=== PATIENT | female | born 1975 | race Caucasian/White ===

== ENCOUNTER 2016-11-22 18:30 | Inpatient (IN) | payer BC ==
[~2016-11-22] VITALS: Ht 160 cm; Wt 63.3 kg
[2016-11-22] VITALS (9 sets, daily range): BP systolic 121–158; BP diastolic 83–923
--- NOTE | ~2016-11-22 | CON ---
[place], [place] REPORT OF CONSULTATION [id number] #: [id number] ROOM: 519 DOCTOR: OWEN DOMINGUEZ ED.D (RAHEEM) BIRTHDATE: [birth year] DOS: 11/23/2016 HISTORY OF PRESENT ILLNESS: The patient is a 41-year-old female referred following an overdose of drugs. She is presently in the Intensive Care Unit at [facility]. She is and has no children. She does have one brother who also has substance abuse issues. Her family physician is Dr. aCin. Her medical history is pertinent for hypertension, major depression, heroin abuse and cocaine abuse. She has been treated at [facility] and [facility] for substance abuse in the past. She has been following with Dr. Johnson, who treats her with Suboxone. She stated that it became very expensive and she discontinued the Suboxone. She actually can afford the medications and I did discuss that with the [facility] staff along with her hospitalist. She states that she gets depressed because her substance abuse and has been treated on the Behavioral Health Unit here at [facility]. She was prescribed Zyprexa and Remeron by Dr. Guevara, but they caused significant weight gain and she discontinued the medications. I did discuss this with Dr. Guevara and he will be contacted as a consult by Dr. Mena for his psychotropic medications. She states she will probably follow up in my office for outpatient therapy along with following with medication management and Suboxone. DIAGNOSES: 1. Major depressive disorder, recurrent. 2. Heroin abuse. 3. Cocaine abuse. RECOMMENDATIONS: 1. This patient should go to [facility]. 2. The patient should follow up with Dr. Guevara. 3. The patient to follow with Dr. Johnson for Suboxone. 4. The patient is not suicidal and therefore may be treated under the [facility]. Thank you very much for this consult. OWEN DOMINGUEZ ED.D CM:CONSTR:REPORT OF CONSULTATION 1122 11/23/16 1534 interface
--- NOTE | ~2016-11-22 | CON ---
[place], [place] REPORT OF CONSULTATION NAME: DIXIE HORNER UNIT #: [id number] ROOM: 519 DOCTOR: SAIDA GAVIN MD BIRTHDATE: [birth year] DOS: 11/24/2016 PSYCHIATRIC CONSULT CHIEF COMPLAINT: "I am just so depressed. I need something that works without causing weight gain" HISTORY OF PRESENT ILLNESS: This is a 41-year-old white female who was initially admitted due to an overdose of drugs. The patient has a lengthy history of substance abuse and most recently was stabilized on Suboxone; however, due to the cost of the Suboxone, she dropped out of treatment and subsequently relapsed. She also has a lengthy history of depression and most recently was stabilized on a combination of Remeron and Zyprexa while those medications worked extremely well at combating the depression. She reports an excessive amount of weight gain of over 30 pounds since starting the medication. She subsequently stopped the medications due to the significant weight gain. She endorses poor sleep and appetite, energy, anhedonia, hopeless, helpless feelings, crying spells, and inability to cope. She also has mood swings at times that become very problematic. PAST MEDICAL HISTORY: Remarkable for hypertension, heroin abuse, cocaine abuse. MENTAL STATUS: She is alert and oriented to person, place, and time. Mood is depressed with anxious overtones. She was on the verge of tears throughout most of the session. She endorses multiple neurovegetative symptoms. She also notes some issues with mood lability. There are no psychotic symptoms. There are no auditory or visual hallucinations, delusions or paranoia. Short-term, intermediate, and long-term memory are intact. DIAGNOSIS: Bipolar type 2. PLAN: I will start her on Tofranil 75 mg at bedtime. The dose should be increased gradually to a target of at least 150 mg at bedtime. Likewise, I will start her on Vraylar as a mood stabilizer at 1.5 mg at bedtime, its dose should be stabilized somewhere between 3 and 6 mg at bedtime. I have suggested that she follow up for counseling with Dr. Curly Rosas, psychologist and for medication management with [facility] at [facility]. SAIDA GAVIN MD CM:CONSTR:REPORT OF CONSULTATION 11/24/16 0928 interface
[~2016-11-22 18:30] MED LIST: ANAPROX DS550 MG PO; BUPRENORPHINE-N1 TAB SL; CIPRO500 MG PO; CLONAZEPAM1 MG PO; CLONIDINE HCL0.1 MG PO; DIOVAN80 M1 PO; GEODON20 M1 IM; LEVAQUIN750 MG PO; METHSCOPOLAMIN2.5 M1 PO; MIRTAZAPINE15 M2 PO; NALTREXONE HCL50 MG PO; REMERON15 M2 PO; SEPTRA DS 800 M1 TAB PO; VALSARTAN160 MG PO; VICODIN 5/500 505 MG PO; VISTARIL50 MG PO; ZOFRAN2 MG/ML IJ; ZYPREXA2.5 MG PO; ZYPREXA5 M1 PO; Zofran4 MG PO
--- NOTE | 2016-11-22 18:55 | NUR ---
ALL BELONGINGS IN BAG AND AT NURSING STATION. PT CALM AND COOPERATIVE. SPOKE WITH POISON CONTROL, STATES TO PROVIDE SUPPORTIVE CARE FOR PATIENT, ORDER EKG, TYLENOL AND ASA LEVEL.
[2016-11-22 19:05] LABS: BASO # 0.1 10*3/uL (0.0-0.1); BASO % 0.8 % (0.0-1.0); EOS # 0.3 10*3/uL (0.0-0.4); EOS % 3.6 % (1.0-4.0); HEMATOCRIT 42.7 % (37.0-47.0); HEMOGLOBIN 14.4 g/dl (12.0-16.0); LYMPH # 2.4 10*3/uL (1.3-4.4); LYMPH % 30.7 % (27.0-41.0); MEAN CELL VOLUME 91.8 fl (81.0-99.0); MEAN CORPUSCULAR HGB CONC 33.7 g/dl (33.0-37.0); MEAN PLATELET VOLUME 10.1 fl (9.6-12.3); MONO # 0.5 10*3/uL (0.1-1.0); MONO % 6.7 % (3.0-9.0); NEUT # 4.5 10*3/uL (2.3-7.9); NEUT % 57.9 % (47.0-73.0); PLATELET COUNT AUTOMATED 349 10*3/uL (130-400); RED BLOOD COUNT 4.65 10*6/uL (4.10-5.10); RED CELL DISTRI WIDTH 12.6 % (0-14.5); WHITE BLOOD COUNT 7.8 10*3/uL (4.8-10.8)
[2016-11-22 19:06] LABS: BILIRUBIN NEGATIVE (NEGATIVE); BLOOD 3+ (NEGATIVE); CLARITY CLEAR (CLEAR); COLOR YELLOW (YELLOW); GLUCOSE NEGATIVE (NEGATIVE); KETONE 1+ (NEGATIVE); LEUKO ESTERASE TRACE (NEGATIVE); NITRITE NEGATIVE (NEGATIVE); UROBILINOGEN 0.2 E.U./dl (0.2-1.0)
[2016-11-22 19:12] LABS: BACTERIA TRACE
[2016-11-22 19:15] LABS: URINE AMPHETAMINES < 1000 (1000ng/ml); URINE BARBITURATES < 200 (200ng/ml); URINE BENZODIAZEPINES < 200 (200ng/ml); URINE CANNABINOIDS (THC) < 50 (50ng/ml); URINE COCAINE > 300 (300ng/ml); URINE METHADONE < 300 (300ng/ml); URINE OPIATES > 300 (300ng/ml)
[2016-11-22 19:16] LABS: URINE PHENCYCLIDINE < 25 (25ng/ml)
[2016-11-22 19:19] LABS: ALBUMIN 4.2 gm/dl (3.1-4.5); ALKALINE PHOSPHATASE 115 U/L (45-117); BUN 10 mg/dl (7-24); CHLORIDE 113 mmol/L (98-107); CREATININE 0.91 mg/dL (0.55-1.02); POTASSIUM 4.3 mmol/L (3.5-5.1); SGOT/AST 21 IU/L (3-35); SGPT/ALT 19 U/L (12-78); SODIUM 144 mmol/L (136-145); TOTAL PROTEIN 8.1 gm/dL (6.4-8.2)
--- NOTE | 2016-11-22 19:20 | NUR ---
PATIENT STILL TEARFUL STATES SHE IS SAD AND EMBARRASSED. SIGNIFICANT OTHER PRESENT
[2016-11-22 19:22] LABS: ACETAMINOPHEN (TYLENOL) < 2.0 ug/ml (10-30); B-hCG (QUALITATIVE) NEGATIVE (NEGATIVE)
--- NOTE | 2016-11-22 20:45 | NUR ---
POISON CONTROL CALLED FOR UPDATE
--- NOTE | 2016-11-22 23:42 | NUR ---
POISON CONTROL CALLED AGAIN INFORMED THAT SHE IS BEING ADMITTED TO ICU
[2016-11-23 00:30] VITALS: BP 153/77
[2016-11-23 04:00] VITALS: BP 106/62
[2016-11-23 06:08] LABS: BASO # 0.1 10*3/uL (0.0-0.1); BASO % 0.6 % (0.0-1.0); EOS # 0.4 10*3/uL (0.0-0.4); EOS % 5.4 % (1.0-4.0); HEMATOCRIT 40.1 % (37.0-47.0); HEMOGLOBIN 13.3 g/dl (12.0-16.0); LYMPH # 3.4 10*3/uL (1.3-4.4); LYMPH % 41.8 % (27.0-41.0); MEAN CELL VOLUME 93.5 fl (81.0-99.0); MEAN CORPUSCULAR HGB CONC 33.2 g/dl (33.0-37.0); MONO # 0.7 10*3/uL (0.1-1.0); MONO % 8.4 % (3.0-9.0); NEUT # 3.5 10*3/uL (2.3-7.9); NEUT % 43.6 % (47.0-73.0); PLATELET COUNT AUTOMATED 296 10*3/uL (130-400); RED BLOOD COUNT 4.29 10*6/uL (4.10-5.10); RED CELL DISTRI WIDTH 12.6 % (0-14.5); WHITE BLOOD COUNT 8.1 10*3/uL (4.8-10.8)
--- NOTE | 2016-11-23 06:38 | NUR ---
DR. DOMINGUEZ ANSWERING SERVICE NOTIFIED OF CONSULT.
[2016-11-23 06:40] LABS: BUN 13 mg/dl (7-24); CHLORIDE 108 mmol/L (98-107); CHOLESTEROL 210 mg/dL (<200); CREATININE 0.86 mg/dL (0.55-1.02); SODIUM 141 mmol/L (136-145); TRIGLYCERIDES 94 mg/dl (<150); VLDL CHOLESTEROL 19 mg/dL (6-40)
[2016-11-23 06:42] LABS: ACT PARTIAL THROMBO TIME 28.8 SECONDS (20.8-31.5)
[2016-11-23 06:49] LABS: HDL CHOLESTEROL 83 mg/dl (40-60); LDL CHOLESTEROL 108 mg/dL (9-159)
[2016-11-23 07:27] LABS: VITAMIN D, 25-HYDROXY 29.9 ng/mL (30-100)
[2016-11-23 08:00] VITALS: BP 134/78
--- NOTE | 2016-11-23 09:20 | NUR ---
PATIENT C/O STOMACH ACHING AND ANXIETY. MEDICATED WITH BENTYL AND VISTARIL PER PRN ORDERS. WILL CONTINUE TO MONITOR.
[2016-11-23 12:00] VITALS: BP 124/70
--- NOTE | 2016-11-23 13:30 | NUR ---
NOTIFIED OF NEW CONSULT ORDER.
[2016-11-23 16:00] VITALS: BP 130/74
[2016-11-23 20:00] VITALS: BP 115/77
--- NOTE | 2016-11-23 20:00 | NUR ---
PT C/O BACK PAIN. MEDICATED WITH MOTRIN PER PRN ORDER.
--- NOTE | 2016-11-23 22:00 | NUR ---
MOTRIN WAS EFFECTIVE.
[2016-11-24] VITALS: BP 113/83
[2016-11-24 08:00] VITALS: BP 122/90
--- NOTE | 2016-11-24 09:52 | NUR ---
PT SITTING UP IN BED. RESP-EASY AND REGULAR. COMPLAINING OF ANXIETY. MEDICATED WITH VISTARIL PO PER PRN ORDER, SEE EMAR. CALL LIGHT IN REACH. SEE SHIFT ASSESSMENT.
--- NOTE | 2016-11-24 10:00 | NUR ---
Patient resting. Responding to scheduled medications with fewer complaints of pain and anxiety. CALL LIGHT IN REACH.
[2016-11-24 12:00] VITALS: BP 120/77
--- NOTE | 2016-11-24 14:00 | NUR ---
RESTING IN CHAIR. NO C/O AT THIS TIME. CALL LIGHT IN REACH.
[2016-11-24 16:00] VITALS: BP 116/98
--- NOTE | 2016-11-24 16:00 | NUR ---
PT RESTING IN BED. RESP-EASY AND REGULAR. NO C/O AT THIS TIME. CALL LIGHT IN REACH. SEE SHIFT ASSESSMENT.
--- NOTE | 2016-11-24 18:30 | NUR ---
SITTING UP IN RECLINER CHAIR. RESP-EASY AND REGULAR. NO C/O AT THIS TIME. CALL LIGHT IN REACH.
--- NOTE | 2016-11-24 19:14 | NUR ---
PATIENT HAS COMPLAINTS OF RESTLESS LEG AND MUSCLE PAIN. ROBAXIN AND REQUIP GIVEN. PATIENT ALSO ASKED ABOUT THE NEW MEDS FROM DR. GAVIN, AND I EXPLAINED TO HER SHE WOULD BE STARTING TONIGHT. WILL REASSESS.
[2016-11-24 20:00] VITALS: BP 120/88
--- NOTE | 2016-11-24 21:00 | NUR ---
REQUIP AND ROBAXIN EFFECTIVE FOR RESTLESSNESS AND MUSCLE ACHES.
[2016-11-25] VITALS: BP 136/79
--- NOTE | 2016-11-25 05:20 | NUR ---
24 HR chart check completed.
--- NOTE | 2016-11-25 07:50 | NUR ---
PT RESTING IN BED. RESP-EASY AND REGULAR. NO C/O AT THIS TIME. CALL LIGHT IN REACH. SEE SHIFT ASSESSMENT.
[2016-11-25 08:00] VITALS: BP 123/76
--- NOTE | 2016-11-25 09:25 | NUR ---
PT SITTING UP IN CHAIR. TOLERATED ROUTINE MED WITH NO PROBLEM. REQUESTING VISTARIL FOR ANXIETY. MEDICATED WITH VISTARIL PO PER PRN ORDER, SEE EMAR. CALL LIGHT IN REACH.
--- NOTE | 2016-11-25 10:25 | NUR ---
STATES MEDICATION EFFECTIVE. NO C/O AT THIS TIME. CALL LIGHT IN REACH.
[2016-11-25 12:00] VITALS: BP 127/70
--- NOTE | 2016-11-25 14:00 | NUR ---
SITTING UP IN CHAIR. VISITORS AT HER SIDE. RESP-EASY AND REGULAR. NO C/O AT THIS TIME. CALL LIGHT IN REACH.
[2016-11-25] MEDS ORDERED: ZOFRAN 4 MG ED2 TAB PO (14:11)
[2016-11-25] MEDS ORDERED: ROPINIROLE HYD0.5 MG PO (14:11)
[2016-11-25] MEDS ORDERED: VRAYLAR1.5 MG PO (14:11)
[2016-11-25] MEDS ORDERED: ATARAX,VISTARIL50 MG PO (14:11)
[2016-11-25] MEDS ORDERED: IMIPRAMINE HCL50 MG PO (14:11)
[2016-11-25] MEDS ORDERED: Vitamin D PO (14:11)
[2016-11-25 16:00] VITALS: BP 130/84
--- NOTE | 2016-11-25 16:00 | NUR ---
PT SITTING UP IN CHAIR WITH VISITORS AT HER SIDE. TOLERATED ROUTINE SUBUTEX. NO COMPLAINTS AT THIS TIME. CALL LIGHT IN REACH. SEE SHIFT ASSESSMENT.
--- NOTE | 2016-11-25 18:30 | NUR ---
PT RESTING IN BED. NO C/O AT THIS TIMJE. CALL LIGHT IN REACH.
[2016-11-25 20:00] VITALS: BP 130/84
--- NOTE | 2016-11-25 20:29 | NUR ---
PATIENT RESTING IN BED CALL LIGHT IN REACH GAVE SCHEDULED MEDICATIONS AND PRN MEDICATION FOR WITHDRAWAL SYMPTOMS PATIENT IS EXPERIENCING. WILL REASESS FOR EFFECTIVENESS OF MEDICATIONS
--- NOTE | 2016-11-25 22:40 | NUR ---
CHART CHECK COMPLETE
[2016-11-26] VITALS: BP 120/80
--- NOTE | 2016-11-26 03:55 | NUR ---
PATEINT RESTING IN BED CALL LIGHT IN REACH SEE SHIFT ASSESSMENT
[2016-11-26 04:00] VITALS: BP 115/70
[2016-11-26 08:00] VITALS: BP 126/68
--- NOTE | 2016-11-26 11:55 | NUR ---
Discharge instructions reviewed with patient/family. Patient receptive and verbalizes understanding. Follow-up care arranged. Written instructions given to patient/family. LAVINIA EDDY
== END 2016-11-26 12:00 | disposition home or self-care (01) | DRG 918 ==
LOC: ED 18:30 → EDHOLD 23:37 → ICCU 23:37 → 5E 11-23 14:35
PROVIDERS: Internal Medicine; Physician Assistant; ADMIT Emergency Medicine
DX: T50.902A Poisoning by unspecified drugs, medicaments and biological substances, intentional self-harm, initial encounter (principal); E87.8 Other disorders of electrolyte and fluid balance, not elsewhere classified; F11.23 Opioid dependence with withdrawal; F31.81 Bipolar II disorder; R06.82 Tachypnea, not elsewhere classified; F14.10 Cocaine abuse, uncomplicated; I10 Essential (primary) hypertension; F41.9 Anxiety disorder, unspecified; E78.00 Pure hypercholesterolemia, unspecified; K27.9 Peptic ulcer, site unspecified, unspecified as acute or chronic, without hemorrhage or perforation; Z83.3 Family history of diabetes mellitus; Z82.49 Family history of ischemic heart disease and other diseases of the circulatory system; Z88.8 Allergy status to other drugs, medicaments and biological substances

== ENCOUNTER 2017-01-30 16:18 | Inpatient (IN) | payer BC ==
[~2017-01-30] VITALS: Ht 160 cm; Wt 63.7 kg
--- NOTE | ~2017-01-30 | CON ---
[place], [place] REPORT OF CONSULTATION NAME: [facility] [id number] UNIT #: [id number] ROOM: [facility] DOCTOR: OWEN DOMINGUEZ ED.D (RAHEEM) BIRTHDATE: [birth year] DOS: 01/31/2017 HISTORY OF PRESENT ILLNESS: The patient is a 41-year-old female referred by the hospitalist for evaluation following an overdose of drugs. At the present time, this patient is in the intensive care unit at [place] [facility]. She is , but has no children. Her family physician is Dr. Cain and her medical history is pertinent for bipolar 2 disorder, hypertension, hypercholesterolemia, peptic ulcer disease, history of suicide attempts in the past and heroin and cocaine abuse. She does not use any tobacco related products and is a social drinker. The patient was awake, alert and oriented in all 3 spheres. She adamantly denies any suicidal ideation or plan. She does not appear to be having any active hallucinations or delusional thoughts and I have known this patient for many years and she never had any delusional thoughts. Her short and long-term memory appears to be intact. Her insight, judgment and concentration are fair. This patient indicated she overdosed on heroin and cocaine, but does not remember anything after she did snort drugs. She states that she was recently in [facility] and wants to return to the [facility]. I did discuss this with [facility] staff and she will be readmitted to the [facility] and possibly sent for inpatient treatment. She does follow with Dr. Munoz where she receives lithium, doxepin, Ativan and Neurontin. I suggested she did need to see a counselor, SMOOTH Franco. She states she is going to get ____ recommended and will follow up with Dr. Munoz along with [facility]. DIAGNOSES: 1. Heroin abuse. 2. Cocaine abuse. 3. Bipolar 2 disorder. RECOMMENDATIONS: 1. The patient should be readmitted to the [facility]. 2. The patient should follow with Dr. Munoz once she is discharged. Thank you very much for this consult. OWEN DOMINGUEZ ED.D CM:CONSTR:REPORT OF CONSULTATION 1156 01/31/17 1857 interface
--- NOTE | ~2017-01-30 | CON ---
[place], [place] REPORT OF CONSULTATION NAME: DIXIE HORNER UNIT #: [id number] ROOM: 424 DOCTOR: ADRIANA PEDRAZA MDULAM BIRTHDATE: [birth year] DOS: 02/03/2017 ADDENDUM Consultation was completed. The patient was independently seen and examined for today's consultation. Medical records of the patient were reviewed. The history was personally taken from the physical examination performed. Assessment and management for the patient, which was done for this patient was personally completed for today's visit as well. The note which was done by the medical assistant prn for part of the consultation was approved. HISTORY OF PRESENT ILLNESS: The patient was noted as a 41-year-old female who has been admitted to the hospital and admitted under the hospitalist service on 01/30/2017. The patient was found to be barely arousable with significant somnolence. The patient was seen by the EMS. She was brought to the hospital for possibility of drug overdose with the heroin. The patient reported with history of drug abuse in the past as well. She has been noted with use of the heroin and also cocaine. She denies any history of illicit drug use. She has been treated related to drug withdrawal and initially admitted to the medical floor. Later on, converted to the [facility] patient for the management of the illicit drug use and detox infiltration. The patient had a CT scan of the chest that was ordered yesterday by the primary care attending to rule out pulmonary embolism because of the tachycardia noted in this patient. She denies any ongoing symptoms at this time, shortness of breath, coughing, sputum expectoration or any chest pain or hemoptysis. REVIEW OF SYSTEMS: Done by the medical assistant prn. PAST MEDICAL HISTORY: 1. Noted history of use of illicit drugs in the form of heroin snorting as well as cocaine use. 2. History of bipolar disorder. 3. Essential hypertension. 4. Hypercholesterolemia. 5. IgA nephropathy. 6. Peptic ulcer disease. 7. Past history of suicidal attempt. PAST SURGICAL HISTORY: Noted with wisdom teeth extraction. SOCIAL HISTORY: The patient stated that she is , but does not have any history of alcohol use or any illicit drugs. She does not have any children. History of use of cocaine and heroin was noted both done with inhalation and no intravenous use described. There was no history of tobacco use. FAMILY HISTORY: The patient's both parents living, 66 years old for the patient without any known medical illnesses. HOME MEDICATIONS: The patient reported use of doxepin, Neurontin, lithium, lorazepam, scopolamine and Diovan. [place], [place] REPORT OF CONSULTATION NAME: DIXIE HORNER UNIT #: [id number] ROOM: 424 DOCTOR: LALEN PEDRAZA MD BIRTHDATE: [birth year] DRUG ALLERGIES: Reported allergies to BACITRACIN and PENICILLINS. PHYSICAL EXAMINATION: GENERAL: This is a 41-year-old female who has been currently noted to be awake and alert at this time without any acute distress. The patient was sitting comfortably on the chair at this time of the examination. VITAL SIGNS: The patient's height was recorded on admission with height of 5 feet 3 inches, weight of 140 pounds, BMI was not calculated. Vital signs, which has been recorded shows the temperature noted at 100 degrees Fahrenheit on 02/01/2017, otherwise the patient remains afebrile. The respiratory rate range between 18-20, heart rate noted with mild tachycardia with heart rate of 115 beats per minute to 91 this morning. Pulse oxygen saturation on room air was 100% saturation noted normal since admission. HEENT: Shows head was atraumatic. Eyes nonicterus. NECK: Supple. CARDIOVASCULAR: S1, S2 is audible. LUNGS: Noted without any wheezing or crackles. ABDOMEN: Soft, nontender. EXTREMITIES: Shows no edema. SKIN: No edema, clubbing or cyanosis. CENTRAL NERVOUS SYSTEM: Cranial nerves 2-12 intact. MUSCULOSKELETAL: No deformities. SKIN: No lesions or rashes. LABORATORY DATA: Reviewed for this patient's CBC on 01/30/2017, WBC count 16.3 rather was noted, otherwise remaining CBC was normal. Salicylate level noted less than 1.7. CMP: Glucose 212, BUN and creatinine was normal, CO2 of 18. Tylenol level noted less than 2. The urine drug screen was noted only positive for the cocaine. There is no opiates detected. PT/INR on 01/30/2017 was normal. Urine culture, no bacterial growth. CBC that was done this morning remains normal. RADIOLOGY DATA: Personally reviewed for this patient. The chest x-ray on 11/22/2016, was reviewed and noted without any acute pulmonary process. CT of the chest that was done on 02/01/2017 was personally reviewed and it shows area of ground glass opacity which was present in the lung for this auscultation bilaterally with normal lung parenchyma. IMPRESSION: 1. The patient will be currently admitted to the hospital noted with most likely acute lung injury with ground glass opacity and noninfectious pneumonitis with airtrapping secondary to bronchiolitis. The patient with interstitial edema, diffuse alveolar lung damage is a strong possibility, there was no suspicion of any pulmonary infection explaining this current problem, which is viral or bacterial. 2. History of illicit drug use in the form of cocaine and heroin. The patient reported use of the heroin, but there was none detected. On the current urine toxicology, only cocaine was seen. There was no cocaine injury noted to the muscles or cardiac issues. [place], [place] REPORT OF CONSULTATION NAME: DIXIE HORNER UNIT #: [id number] ROOM: 424 DOCTOR: ALLEN PEDRAZA MD BIRTHDATE: [birth year] 3. Mild tachycardia noted secondary to drug withdrawal is currently resolving without any intervention. 4. History of essential hypertension. PLAN OF TREATMENT: No further workup is recommended for this patient. If necessary, the patient can make an appointment in my office to have a repeat CT scan of the chest could be done in another 3 months for reassessment. No immediate other assessment will be needed. The patient understands the risk of use of the illicit drugs and its toxicity. Abstinent for any illicit drugs was recommended strongly. Thank you for allowing me to participate in the care of this patient. ALLEN CASTRO MD CM:CONSTR:REPORT OF CONSULTATION 1137 02/03/17 1337 interface
--- NOTE | ~2017-01-30 | CON ---
[place], [place] REPORT OF CON[facility]ULTATION [id number] #: [id number] ROOM: 424 DOCTOR: DANNA ALEXANDRE DO BIRTHDATE: [birth year] DOS: 02/03/2017 HISTORY OF PRESENT ILLNESS: The patient is a 41-year-old female with no known chronic pulmonary issues, who was admitted to the hospital after a heroin overdose and frequent resuscitation via Narcan. She was in the ICU and after that she was moved to the floor and was treated for heroin withdrawal symptoms and she had completed the [facility], which is a 3-day Subutex protocol program and towards the end of her stay, she had a CTA done secondary to concern for PE as has been tachycardic. The patient herself does not complain of any respiratory difficulties or any shortness of breath. She denies any cough, any fevers, any chills. She denies any hemoptysis and any difficulty or pain with breathing. She is afebrile and currently has no symptoms of an acute respiratory infection. The CT did show some scattered ground glass opacities in both the right and left hemothorax and that was the reason for the consultation. REVIEW OF SYMPTOMS: CONSTITUTIONAL: Denies any fevers or chills. EYES: Denies any pain or redness or discharge. EARS, NOSE AND THROAT: Denies throat pain, hoarseness, difficulty swallowing or postnasal discharge or postnasal drainage. CARDIOVASCULAR: Denies chest pain. Denies any lower extremity edema. Denies any palpitations. GASTROINTESTINAL: Denies any dysphagia, nausea, vomiting, hemoptysis, melena, hematochezia, dysphagia or any weight loss as unexpected. GENITOURINARY: Denies dysuria, suprapubic pain. SKIN: No lesions or rashes. MUSCULOSKELETAL: No acute pain in joints or muscles. No tenderness or edema. CENTRAL NERVOUS SYSTEM: Denies any dizziness, headaches, diplopia or syncopal episodes. Remaining systems were reviewed and were negative. PAST MEDICAL HISTORY: Significant for anxiety, bipolar disorder, depression, essential hypertension, heroin abuse, dyslipidemia, ____ nephropathy, peptic ulcer disease and a previous suicide attempt. PAST SURGICAL HISTORY: Positive for an ablation and positive for wisdom tooth extraction. SOCIAL HISTORY: Positive for heroin and cocaine abuse. Does not smoke, does not drink alcohol regularly. FAMILY HISTORY: Father and mother are both alive and they are both 66 years old and no known medical problems. HOME MEDICATIONS: Include doxepin, gabapentin, lorazepam, valsartan and lithium. DRUG ALLERGIES: PENICILLIN. PHYSICAL EXAMINATION: [place], [place] REPORT OF CONSULTATION NAME: DIXIE HORNER UNIT #: [id number] ROOM: 424 DOCTOR: DANNA ALEXANDRE DO BIRTHDATE: [birth year] GENERAL: This is a 41-year-old female who appears awake, alert, oriented and in no distress. VITAL SIGNS: The patient's height is recorded to be 5 feet 3 inches and weight at 63 kilograms with a BMI of 24.9 on admission, temperature is 98.1, heart rate is 91, respiratory rate is 18, blood pressure is 112/81 and pulse ox is 100% on room air. HEENT: Head is atraumatic. Eyes are not icteric. NECK: Supple. CARDIOVASCULAR: S1, S2 audible. No murmurs. No S3. No S4. LUNGS: Some mild decrease in respiratory effort with some minimal crackles in the lower lung pires. ABDOMEN: Soft, nontender. EXTREMITIES: No edema. No clubbing or cyanosis. CENTRAL NERVOUS SYSTEM: Cranial nerves 2-12 are intact without any focal deficits. MUSCULOSKELETAL: Showed no deformities. SKIN: No lesions. No rashes. No track ayala. LABORATORY DATA: From February 03, white blood count is noted to be 5.6, hemoglobin is 12.0, hematocrit is 35.5 and platelet count is 256. Metabolic panel from January 30 showed sodium of 138, potassium of 3.8, chloride of 108, carbon dioxide of 18, BUN of 13, creatinine 0.89, GFR more than 60, glucose 202, calcium 8.3, bilirubin 0.3, AST and ALT are 17 and 20, alk phos is 92, myoglobin is 30, total protein 7.8 and albumin 4.2. Serum was negative. CTA which was done on February 01 was read by Radiology and the impression was that there are scattered ground glass opacities in both right and lower hemithorax. IMPRESSION: 1. Most likely bronchial ____ with air trapping and the tachycardia is likely due to the heroin abuse and withdrawal. 2. Heroin abuse. 3. Bipolar disorder. 4. Depression. PLAN OF MANAGEMENT: The patient is currently asymptomatic from a respiratory or pulmonology perspective and she is cleared for discharge at the discretion of the primary care team. The patient is recommended to follow up with Dr. Castro within the next 3 months for an outpatient visit. She should also get a repeat CT scan after 3 months to reevaluate the current findings. Please attach this note to Dr. Castro's consult note and see his impression and plan of management for further details. DANNA ALEXANDRE DO [place], [place] REPORT OF CONSULTATION NAME: DIXIE HORNER Jonna UNIT #: [id number] ROOM: [facility] DOCTOR: DANNA ALEXANDRE DO BIRTHDATE: [birth year] ALLEN CASTRO MD CM:CONSTR:REPORT OF CONSULTATION 1037 02/03/17 1233 interface
[~2017-01-30 16:18] MED LIST changes: +ATARAX,VISTARIL50 MG PO; +IMIPRAMINE HCL50 MG PO; +ROPINIROLE HYD0.5 MG PO; +VRAYLAR1.5 MG PO; +Vitamin D PO; +ZOFRAN 4 MG ED2 TAB PO
--- NOTE | 2017-01-30 16:31 | NUR ---
PT WAS ADMINSTERED 0.4 OF NARCAN FOR LETHARGY. PT WAS AVLETO OPEN HER EYES AFTER THE ONE DOSE.
[2017-01-30 16:41] VITALS: BP 131/60
--- NOTE | 2017-01-30 16:41 | NUR ---
PT WAS UNABLE TO STAY AWAKE, ADMINSTERED A SECOND DOSE OF 0.4 NARCAN. PT IS DOWSY BUT AWAKE, POX 100% WILL MONITOR.
[2017-01-30 17:29] LABS: BASO # 0.1 10*3/uL (0.0-0.1); BASO % 0.3 % (0.0-1.0); EOS # 0.1 10*3/uL (0.0-0.4); EOS % 0.7 % (1.0-4.0); HEMATOCRIT 42.7 % (37.0-47.0); HEMOGLOBIN 13.7 g/dl (12.0-16.0); LYMPH # 1.4 10*3/uL (1.3-4.4); LYMPH % 8.3 % (27.0-41.0); MEAN CELL VOLUME 98.6 fl (81.0-99.0); MEAN CORPUSCULAR HGB 31.6 pg (27.0-31.0); MEAN CORPUSCULAR HGB CONC 32.1 g/dl (33.0-37.0); MEAN PLATELET VOLUME 10.6 fl (9.6-12.3); MONO # 0.8 10*3/uL (0.1-1.0); MONO % 4.8 % (3.0-9.0); NEUT # 13.9 10*3/uL (2.3-7.9); NEUT % 85.4 % (47.0-73.0); PLATELET COUNT AUTOMATED 254 10*3/uL (130-400); RED BLOOD COUNT 4.33 10*6/uL (4.10-5.10); WHITE BLOOD COUNT 16.3 10*3/uL (4.8-10.8)
[2017-01-30 17:45] LABS: ALBUMIN 4.2 gm/dl (3.1-4.5); ALKALINE PHOSPHATASE 92 U/L (45-117); BUN 13 mg/dl (7-24); CHLORIDE 108 mmol/L (98-107); CREATININE 0.89 mg/dL (0.55-1.02); POTASSIUM 3.7 mmol/L (3.5-5.1); SGOT/AST 17 IU/L (3-35); SGPT/ALT 20 U/L (12-78); SODIUM 138 mmol/L (136-145); TOTAL PROTEIN 7.8 gm/dL (6.4-8.2)
[2017-01-30 17:47] LABS: B-hCG (QUALITATIVE) NEGATIVE (NEGATIVE)
[2017-01-30 17:49] LABS: ACETAMINOPHEN (TYLENOL) < 2.0 ug/ml (10-30); ETHYL ALCOHOL < 3.0 mg/dl (<3)
--- NOTE | 2017-01-30 18:23 | NUR ---
PT AMBULATORY TO BATHROOM TO PROVIDE URINE SPECIMEN.
[2017-01-30 18:29] VITALS: BP 148/88
--- NOTE | 2017-01-30 18:35 | NUR ---
PT AND MOTHER REQUESTING [facility] IF POSSIBLE.
[2017-01-30 18:37] LABS: BILIRUBIN NEGATIVE (NEGATIVE); BLOOD 3+ (NEGATIVE); CLARITY CLEAR (CLEAR); COLOR YELLOW (YELLOW); GLUCOSE 1+ (NEGATIVE); KETONE NEGATIVE (NEGATIVE); LEUKO ESTERASE NEGATIVE (NEGATIVE); NITRITE NEGATIVE (NEGATIVE); SPECIFIC GRAVITY 1.025 (1.005-1.030); UROBILINOGEN 0.2 E.U./dl (0.2-1.0)
[2017-01-30 18:44] LABS: BACTERIA TRACE; RBC 16-20 rbc/hpf (0-2)
[2017-01-30 18:45] LABS: URINE AMPHETAMINES < 1000 (1000ng/ml); URINE BARBITURATES < 200 (200ng/ml); URINE BENZODIAZEPINES < 200 (200ng/ml); URINE CANNABINOIDS (THC) < 50 (50ng/ml); URINE COCAINE > 300 (300ng/ml); URINE METHADONE < 300 (300ng/ml); URINE OPIATES < 300 (300ng/ml)
[2017-01-30 18:46] LABS: URINE PHENCYCLIDINE < 25 (25ng/ml)
--- NOTE | 2017-01-30 18:59 | NUR ---
MOTHER REMAINS AT BEDSIDE.
[2017-01-30 19:03] VITALS: BP 128/86
[2017-01-30 19:24] VITALS: BP 145/94
--- NOTE | 2017-01-30 19:27 | NUR ---
SPOKE WITH NURSING RESOLUTION ANALYST REGARDING BED PLACEMENT IN BHU. TWO COMBATIVE PATIENTS ARE CURRENTLY IN BHU SO U CANNOT TAKE PT UNTIL MORNING.
--- NOTE | 2017-01-30 20:08 | NUR ---
REPORT GIVEN TO ARPIT MACDONALD
[2017-01-30 20:20] VITALS: BP 148/97
--- NOTE | 2017-01-30 20:20 | NUR ---
A 41, admitted to ICCU, under the services of PABLITO Murillo DO with a diagnosis of HEROIN ABUSE, TACHYCARDIA. Chief complaint is POSSIBLE HEROIN OVERDOSE. Patient arrived via stretcher from ER. Monitor applied. Initial assessment completed. Vital signs taken and recorded. PABLITO MURILLO DO notified of admission to the unit. Orders received. See assessment for past medical history, medications and allergies. Patient and/or family oriented to unit. [facility] ICCU visitation policy reviewed. Clothing/patient valuable form completed. DANIELLE MONTANA
[2017-01-30] MEDS ORDERED: ATIVAN0.5 MG PO (20:24)
[2017-01-30] MEDS ORDERED: LITHIUM CARBON300 MG PO (20:24)
[2017-01-30] MEDS ORDERED: METHSCOPOLAMIN2.5 M1 PO (20:26)
[2017-01-30] MEDS ORDERED: NEURONTIN600 MG PO (20:27)
[2017-01-30] MEDS ORDERED: DOXEPIN25 MG PO (20:28)
[2017-01-31] VITALS: BP 123/78
[2017-01-31 04:00] VITALS: BP 105/59
--- NOTE | 2017-01-31 05:00 | NUR ---
PT STATES TRAZADONE INEFFECTIVE FOR INSOMNIA. DANIELLE MONTANA RN
--- NOTE | 2017-01-31 06:55 | NUR ---
DR. DOMINGUEZ'S ANSWERING SERVICE NOTIFIED OF CONSULT. CONSULT NOT COMPLETE, FOLLOW UP INDICATED AND ONCOMING SHIFT AWARE. DANIELLE MONTANA RN
[2017-01-31 08:00] VITALS: BP 118/74
[2017-01-31 12:00] VITALS: BP 120/60
--- NOTE | 2017-01-31 12:42 | NUR ---
[facility] and co-operative. Declined breakfast. Lunch ordered.
[2017-01-31 15:44] VITALS: BP 124/68
[2017-01-31 20:00] VITALS: BP 137/75
--- NOTE | 2017-01-31 21:37 | NUR ---
2130 ROUTINE ATIVAN AND SUBTUTEX GIVEN PER ORDER.
[2017-02-01] VITALS: BP 109/57
--- NOTE | 2017-02-01 00:10 | NUR ---
RESTING IN BED WITH EYES CLOSED. APPEARS TO BE SLEEPING. HOB ELEVATED. CALL LIGHT IN REACH. IV FLUIDS CONT. NO DISTRESS NOTED.
--- NOTE | 2017-02-01 04:06 | NUR ---
REMAINS SLEEPING WITHOUT DISTRESS.
--- NOTE | 2017-02-01 06:18 | NUR ---
SLEPT WELL THIS SHIFT. IV FLUIDS CONT. NO DISTRESS NOTED. REMAINS WITHOUT C/O'S. CONDITION GUARDED.
[2017-02-01 08:00] VITALS: BP 118/69
[2017-02-01 08:41] LABS: BASO # 0.1 10*3/uL (0.0-0.1); BASO % 0.7 % (0.0-1.0); EOS # 0.6 10*3/uL (0.0-0.4); EOS % 6.2 % (1.0-4.0); HEMATOCRIT 32.9 % (37.0-47.0); LYMPH # 1.1 10*3/uL (1.3-4.4); LYMPH % 11.9 % (27.0-41.0); MEAN CELL VOLUME 95.9 fl (81.0-99.0); MEAN CORPUSCULAR HGB 32.1 pg (27.0-31.0); MEAN CORPUSCULAR HGB CONC 33.4 g/dl (33.0-37.0); MEAN PLATELET VOLUME 10.3 fl (9.6-12.3); MONO # 0.7 10*3/uL (0.1-1.0); MONO % 7.5 % (3.0-9.0); NEUT # 6.5 10*3/uL (2.3-7.9); NEUT % 73.4 % (47.0-73.0); PLATELET COUNT AUTOMATED 200 10*3/uL (130-400); RED BLOOD COUNT 3.43 10*6/uL (4.10-5.10); RED CELL DISTRI WIDTH 12.2 % (0-14.5); WHITE BLOOD COUNT 8.9 10*3/uL (4.8-10.8)
--- NOTE | 2017-02-01 10:35 | NUR ---
PATIENT TRANSFERED TO 424 NURSE TO NURSE REPORT GIVEN.
--- NOTE | 2017-02-01 13:56 | NUR ---
Nutritional Support Services Note: Pt [facility]. No nutrition intervention needed at this time. Appetite is improving. Will follow as needed. Beth Keller
--- NOTE | 2017-02-01 14:40 | NUR ---
PT DOWN FOR CTA AT THIS TIME.
--- NOTE | 2017-02-01 15:06 | NUR ---
PT BACK FROM CT AT THIS TIME.
--- NOTE | 2017-02-01 15:29 | NUR ---
D/C PLANNING: DRAWER WAXER SPOKE WITH PATIENT ABOUT DIFFERENT OPTIONS FOR AFTERCARE PLAN. PATIENT HAS REQUESTED SOME BROCHURES ON SOME RESIDENTIAL TREATMENT CENTERS THAT WOULD FIT HER NEEDS. PATIENT REQUESTED REST. JOSE ZURITA B.A. DRAWER WAXER
--- NOTE | 2017-02-01 15:46 | NUR ---
SPOKE WITH DR PARKER REGARDING PT'S DIET ORDER STATES HE WILL RESUME HER REGULAR DIET.
[2017-02-01 16:00] VITALS: BP 118/70
--- NOTE | 2017-02-01 16:20 | NUR ---
Patient resting. Responding to scheduled medications with fewer complaints of anxiety. Call light within reach.
--- NOTE | 2017-02-01 19:48 | NUR ---
PT. RESTING IN BED COMFORTABLY AT THIS TIME WITH NO COMPLAINTS OR DISTRESS, VISITOR IS AT BEDSIDE. PT. RESPERS ARE EASY AND REGULAR ON RA, HOB IS ELEVATED, CALL LIGHT IS WITHIN REACH, BED LOW AND WHEELS LOCKED. SEE SHIFT ASSESSMENT.
--- NOTE | 2017-02-01 20:11 | NUR ---
TYLENOL ADMINISTERED TO PT. FOR C/O HEADACHE AND TEMPERATURE OF 100.1, WILL MONITOR EFFECT.
--- NOTE | 2017-02-01 20:44 | NUR ---
PT. HAS NO C/O OF HEADACHE AND TEMPERATURE IS DOWN TO 99.5. WILL CONTINUE TO MONITOR.
[2017-02-02] VITALS: BP 104/66
--- NOTE | 2017-02-02 02:53 | NUR ---
24 HR chart check completed.
[2017-02-02 06:57] LABS: CREATININE 0.66 mg/dL (0.55-1.02)
[2017-02-02 08:00] VITALS: BP 127/85
--- NOTE | 2017-02-02 08:50 | NUR ---
IV FLUIDS DISCONTINUED AT THIS TIME. EXPLAINED TO PT RATIONALE WHY HER IV SITE HAS TO REMAIN IN PLACE AT THIS TIME. REMOVED WEALTH MANAGEMENT ADVISOR PER ORDER FOR PT TO SHOWER.
--- NOTE | 2017-02-02 10:00 | NUR ---
PT PLACED BACK ON WET MILLING WHEEL OPERATOR. NO DISTRESS NOTED.
[2017-02-02 12:00] VITALS: BP 132/84
--- NOTE | 2017-02-02 12:55 | NUR ---
DR CASTRO NOTIFIED OF NEW CONSULT.
[2017-02-02 16:00] VITALS: BP 122/87
[2017-02-02 20:00] VITALS: BP 124/79
[2017-02-03] VITALS: BP 120/64
[2017-02-03 06:18] LABS: BASO % 0.5 % (0.0-1.0); EOS # 0.5 10*3/uL (0.0-0.4); EOS % 9.1 % (1.0-4.0); HEMATOCRIT 35.5 % (37.0-47.0); LYMPH # 1.4 10*3/uL (1.3-4.4); MEAN CELL VOLUME 95.4 fl (81.0-99.0); MEAN CORPUSCULAR HGB 32.3 pg (27.0-31.0); MEAN CORPUSCULAR HGB CONC 33.8 g/dl (33.0-37.0); MONO # 0.6 10*3/uL (0.1-1.0); MONO % 11.4 % (3.0-9.0); NEUT % 53.6 % (47.0-73.0); PLATELET COUNT AUTOMATED 258 10*3/uL (130-400); RED BLOOD COUNT 3.72 10*6/uL (4.10-5.10); RED CELL DISTRI WIDTH 11.9 % (0-14.5); WHITE BLOOD COUNT 5.6 10*3/uL (4.8-10.8)
[2017-02-03 08:00] VITALS: BP 112/81
--- NOTE | 2017-02-03 09:02 | NUR ---
DR CASTRO IN TO SEE PT.
--- NOTE | 2017-02-03 10:57 | NUR ---
PT DISCHARGED AT THIS TIME WITH TO HOME.
--- NOTE | 2017-02-03 10:57 | NUR ---
Discharge instructions reviewed with patient/family. Patient receptive and verbalizes understanding. Follow-up care arranged. Written instructions given to patient/family. ELIANA IVY
== END 2017-02-03 10:57 | disposition home or self-care (01) | DRG 917 ==
LOC: ED 16:18 → EDHOLD 19:11 → ICCU 19:11 → 4E 19:50 → ICCU 20:04 → 4E 02-01 10:26
PROVIDERS: Internal Medicine; Physician Assistant; Student in an Organized Health Care Education/Training Program; ADMIT Internal Medicine
DX: T50.991A Poisoning by other drugs, medicaments and biological substances, accidental (unintentional), initial encounter (principal); G93.41 Metabolic encephalopathy; R65.10 Systemic inflammatory response syndrome (SIRS) of non-infectious origin without acute organ dysfunction; F31.81 Bipolar II disorder; N02.8 Recurrent and persistent hematuria with other morphologic changes; E78.00 Pure hypercholesterolemia, unspecified; F11.10 Opioid abuse, uncomplicated; F41.9 Anxiety disorder, unspecified; F14.10 Cocaine abuse, uncomplicated; R91.8 Other nonspecific abnormal finding of lung field; I10 Essential (primary) hypertension; R73.9 Hyperglycemia, unspecified; Y92.89 Other specified places as the place of occurrence of the external cause; Z87.11 Personal history of peptic ulcer disease; Z79.899 Other long term (current) drug therapy; Z88.0 Allergy status to penicillin; Z82.49 Family history of ischemic heart disease and other diseases of the circulatory system; Z88.1 Allergy status to other antibiotic agents

== ENCOUNTER 2017-04-10 15:13 | Inpatient (IN) | payer BC ==
[~2017-04-10] VITALS: Ht 162.5 cm; Wt 68.3 kg
--- NOTE | ~2017-04-10 | EKG ---
[place], [place] ELECTROCARDIOGRAM REPORT NAME: DIXIE HORNER UNIT #: [id number] ROOM: [facility] DOCTOR: JUICE MENDOZA MD BIRTHDATE: [birth year] DOS: 04/11/2017 ELECTROCARDIOGRAM REPORT RESULTS: Normal sinus rhythm, low voltage precordial leads, abnormal ECG. Juice Mendoza MD CM:EKGRPT:ELECTROCARDIOGRAM REPORT [id number] JUICE MENDOZA MD
--- NOTE | ~2017-04-10 | CON ---
[place], [place] REPORT OF CONSULTATION NAME: DIXIE HORNER UNIT #: [id number] ROOM: [facility] DOCTOR: ALLEN PEDRAZA MD BIRTHDATE: [birth year] DOS: 04/11/2017 REASON FOR CONSULTATION: Assessment of the patient with cough with a recent admission for drug overdose as well. HISTORY OF PRESENT ILLNESS: The patient found to be unresponsive as the patient took the drug overdose with the use of crack and heroin. She was found unresponsive and was not breathing when the EMS arrived. She was given 4 mg of IV Narcan. The patient became responsive. The patient does not remember about the events except stating that she has been snorting heroin and crack this afternoon. The patient denies any IV heroin use. Denies symptoms of chest pain. She does have symptoms of cough, which was described as nonproductive. Denies symptoms of hemoptysis. The patient denies any symptoms of active wheezing at the present time. REVIEW OF SYSTEMS: CONSTITUTIONAL SYSTEM: Fatigue and tiredness reported. Denies symptoms of fever or chills. EYES: Denies any burning, redness, or tenderness. EARS, NOSE, AND THROAT: Denies sore throat, hoarseness, or otalgia, postnasal drainage or epistaxis. CARDIOVASCULAR SYSTEM: Denies any angina pain, edema, or pain of lower extremities. GASTROINTESTINAL SYSTEM: Denies dysphagia, nausea, vomiting, diarrhea, aspiration, abnormal weight loss, hematochezia, hematemesis or melena. MUSCULOSKELETAL: No acute joint pain, redness, or tenderness. SKIN: No lesions or rashes. CENTRAL NERVOUS SYSTEM: No dizziness, headache, diplopia, syncopal episodes, seizures at home. Remaining systems were reviewed for this patient. They were noted all negative. PAST MEDICAL HISTORY: 1. Noted for previous admission in this hospital with acute drug overdose requiring short term intubation, mechanical ventilation and discharged home in February 2017. 2. Pulmonary nodule noted in the right lung pleural base requiring further assessment. The patient was seen in the office. 3. The patient with chronic insomnia. I suspect obstructive sleep apnea disorder requiring further assessment. 4. History of IgA nephropathy. SOCIAL HISTORY: The patient stated that she is , does not have any children. Denies any tobacco use, has been noted history of heroin use as well as the crack use, uses snorting without any IV use. PAST SURGICAL HISTORY: Essentially noted. Biopsy of the kidney several years ago. FAMILY HISTORY: Mother 66 years old, living. Father was noted age of 66 years [place], [place] REPORT OF CONSULTATION NAME: DIXIE HORNER UNIT #: [id number] ROOM: [facility] DOCTOR: MATTHEW BLACK MD,ALLEN BIRTHDATE: [birth year] old with a history of essential hypertension. HOME MEDICATIONS: Listed for the patient as use of Valium, doxepin, gabapentin, Lithobid, Levaquin, and valsartan. DRUG ALLERGY HISTORY: Reported as history of allergy to: 1. NEOSPORIN 2. PENICILLIN. PHYSICAL EXAMINATION: GENERAL: This is a 41-year-old female who has been currently sitting on the chair in the Intensive Care Unit without any acute distress, noted fully awake, alert, oriented. Height of 5 feet 4 inches, weight of 50 pounds, BMI 25.8. VITAL SIGNS: Normal temperature, respiratory rate 18-16, heart rate 100-82, blood pressure of 88/58-124/80. Pulse oxygen saturation on room air was 100% saturation. HEENT: Head was atraumatic. Eyes nonicterus. NECK: Supple. CARDIOVASCULAR: S1, S2 is audible. LUNGS: Noted without any crackles, rhonchi, or wheezing at the present time. Breaths are noted clear in the lungs bilaterally. ABDOMEN: Noted flat, soft, nontender, mild obesity. EXTREMITIES: Noted without any edema, clubbing, or cyanosis. CENTRAL NERVOUS SYSTEM: Noted cranial nerves 2-12 intact. No focal deficit. MUSCULOSKELETAL: Does not show any acute deformities. SKIN: Showed no lesions or rashes. LABORATORY DATA: Urine drug screen noted positive for cocaine and benzodiazepines. CBC of 04/10/2017; WBC count 16.7, hemoglobin, hematocrit and platelet count was normal. Salicylate level noted less than 1.7 yesterday. CMP yesterday on admission; BUN 17, creatinine 1.30. The remaining LFTs normal except albumin mildly decreased 2.2. Lactic acid yesterday was 1.2. Admission troponin noted normal on admission, 3 sets. CBC of 04/11/2017; normal WBC count, hemoglobin 11.1, hematocrit 34.1, platelet count normal. Remaining CBC normal, differential normal. Urine culture, no bacterial growth. Chest x-ray, 1 view, does not show any acute pulmonary abnormalities. CT scan of the chest that was done on 04/10/2017 shows patchy area of chronic obesity in the lower lung pires was noted. There was no discrete pulmonary nodules visible. IMPRESSION: 1. The patient who has been currently admitted to the hospital noted with current findings on CT scan, most likely consistent with area of atelectasis and hypoventilation because of unresponsiveness and having secretions with hypoventilation. Other differential diagnosis could be noted as cocaine-induced pulmonary injury to the lung, but the findings was not noted classic for that. 2. Past history of pulmonary nodule which was not visible at this time on the current CT scan of the chest since February 2018. 3. History of recurrent hospitalization with drug overdose with the use of crack and cocaine and use of heroin possibly as well. 4. History of anxiety disorder and depression. [place], [place] REPORT OF CONSULTATION NAME: DIXIE HORNER UNIT #: [id number] ROOM: [facility] DOCTOR: MATTHEW BLACK MD,ALLEN BIRTHDATE: [birth year] 5. History of IgA nephropathy. PLAN OF TREATMENT: At this time, the patient is to be treated symptomatically and may not require any antibiotic administration. When the patient is noted medically stable, could be discharged at home settings. Outpatient followup previously noted in the office will be kept. I have planned for ordering a CT scan of the chest as an outpatient, which will be canceled since the CT scan chest was already obtained patient during this admission. She has been also assessed for insomnia and will be requiring a diagnostic sleep study as well, which is noted at this time being scheduled in the sleep laboratory. ALLEN CASTRO MD CM:CONSTR:REPORT OF CONSULTATION 1614 04/12/17 0311 interface
--- NOTE | ~2017-04-10 | CON ---
[place], [place] REPORT OF CONSULTATION NAME: [facility]ORNER [id number] UNIT #: [id number] ROOM: [facility] DOCTOR: OWEN DOMINGUEZ ED.D (RAHEEM) BIRTHDATE: [birth year] DOS: 04/11/2017 The patient is a 41-year-old female referred by the hospitalist for evaluation following an overdose of heroin and cocaine. She received Narcan when she was found unconscious. At the present time, this patient is in the intensive care unit at [facility]. The patient is , with no children. Her family physician is Dr. Burke Cain and her medical history is pertinent for bipolar 2 disorder, hypertension, hypercholesterolemia, peptic ulcer disease, history of suicide attempts in the past, heroin and cocaine abuse. She states she is a social drinker, but does not use any tobacco related products. This patient was awake, alert and oriented in all 3 spheres. I have known this patient for many years and she has no history of hallucinations or delusional thoughts. Her insight, judgment and concentration are fair. This patient indicated she again overdosed on heroin and cocaine, and did receive Narcan prior to coming to the hospital. She states that she wants to follow up with Dr. Johnson for outpatient Suboxone treatment. She is also going to go back to the counseling center in [place] because she can receive drug counseling at the counseling center. She usually is noncompliant, although she did follow up with Dr. Johnson for quite some time, but then was concerned about the financial issues of paying for Suboxone. Her does have a good job and she states she has the financial resources, but does not like to spend money on Suboxone. I indicated she needed to do something to break the cycle of her addiction. DIAGNOSES: 1. Heroin abuse. 2. Cocaine abuse. 3. Bipolar 2 disorder. RECOMMENDATIONS: 1. Consider the [facility], although the patient seems to want to go outpatient. 2. The patient may be discharged when medically stable since she is not suicidal. Thank you very much for this consult. OWEN DOMINGUEZ ED.D CM:CONSTR:REPORT OF CONSULTATION 1058 04/11/17 1150 interface
[~2017-04-10 15:13] MED LIST changes: +ATIVAN0.5 MG PO; +DOXEPIN25 MG PO; +LITHIUM CARBON300 MG PO; +NEURONTIN600 MG PO
[2017-04-10 15:15] VITALS: BP 130/78
[2017-04-10] MEDS ORDERED: VALIUM2 MG PO (15:32)
[2017-04-10 16:22] LABS: BILIRUBIN NEGATIVE (NEGATIVE); BLOOD NEGATIVE (NEGATIVE); CLARITY SL CLOUDY (CLEAR); COLOR YELLOW (YELLOW); GLUCOSE 2+ (NEGATIVE); KETONE NEGATIVE (NEGATIVE); LEUKO ESTERASE TRACE (NEGATIVE); NITRITE NEGATIVE (NEGATIVE); UROBILINOGEN 0.2 E.U./dl (0.2-1.0)
[2017-04-10 16:26] LABS: BASO # 0.1 10*3/uL (0.0-0.1); BASO % 0.3 % (0.0-1.0); EOS % 0.1 % (1.0-4.0); HEMOGLOBIN 12.7 g/dl (12.0-16.0); LYMPH % 6.2 % (27.0-41.0); MEAN CORPUSCULAR HGB 31.6 pg (27.0-31.0); MEAN CORPUSCULAR HGB CONC 32.6 g/dl (33.0-37.0); MEAN PLATELET VOLUME 9.7 fl (9.6-12.3); MONO % 5.9 % (3.0-9.0); NEUT # 14.5 10*3/uL (2.3-7.9); PLATELET COUNT AUTOMATED 326 10*3/uL (130-400); RED BLOOD COUNT 4.02 10*6/uL (4.10-5.10); RED CELL DISTRI WIDTH 12.3 % (0-14.5); WHITE BLOOD COUNT 16.7 10*3/uL (4.8-10.8)
[2017-04-10 16:30] LABS: URINE AMPHETAMINES < 1000 (1000ng/ml); URINE BARBITURATES < 200 (200ng/ml); URINE BENZODIAZEPINES > 200 (200ng/ml); URINE CANNABINOIDS (THC) < 50 (50ng/ml); URINE COCAINE > 300 (300ng/ml); URINE METHADONE < 300 (300ng/ml); URINE OPIATES < 300 (300ng/ml)
[2017-04-10 16:32] LABS: URINE PHENCYCLIDINE < 25 (25ng/ml)
[2017-04-10 16:42] LABS: BACTERIA TRACE
[2017-04-10 17:21] LABS: ALKALINE PHOSPHATASE 90 U/L (45-117); BUN 17 mg/dl (7-24); CHLORIDE 107 mmol/L (98-107); POTASSIUM 4.4 mmol/L (3.5-5.1); SGOT/AST 19 IU/L (3-35); SGPT/ALT 21 U/L (12-78); SODIUM 139 mmol/L (136-145); TOTAL PROTEIN 7.6 gm/dL (6.4-8.2)
[2017-04-10 17:22] VITALS: BP 131/82
[2017-04-10 17:22] LABS: ACETAMINOPHEN (TYLENOL) < 2.0 ug/ml (10-30); ETHYL ALCOHOL < 3.0 mg/dl (<3); TROPONIN I < 0.015 ng/ml (<0.045)
[2017-04-10 18:30] VITALS: BP 128/72
[2017-04-10 19:15] VITALS: BP 116/73
[2017-04-10 20:30] VITALS: BP 110/68
[2017-04-10 21:45] VITALS: BP 88/58
[2017-04-10] MEDS ORDERED: LITHOBID300 M1 PO (22:18)
[2017-04-11] VITALS: BP 100/62
[2017-04-11 04:00] VITALS: BP 108/60
[2017-04-11 05:29] LABS: BUN 10 mg/dl (7-24); CHLORIDE 114 mmol/L (98-107); CHOLESTEROL 158 mg/dL (<200); CREATININE 0.92 mg/dL (0.55-1.02); PHOSPHOROUS 2.5 mg/dL (2.5-4.9); POTASSIUM 3.9 mmol/L (3.5-5.1); SGOT/AST 12 IU/L (3-35); SGPT/ALT 16 U/L (12-78); SODIUM 145 mmol/L (136-145); TOTAL PROTEIN 5.9 gm/dL (6.4-8.2); TRIGLYCERIDES 128 mg/dl (<150); VLDL CHOLESTEROL 26 mg/dL (6-40)
[2017-04-11 05:38] LABS: ALKALINE PHOSPHATASE 70 U/L (45-117)
[2017-04-11 05:40] LABS: HDL CHOLESTEROL 72 mg/dl (40-60); LDL CHOLESTEROL 60 mg/dL (9-159)
[2017-04-11 06:19] LABS: BASO % 0.4 % (0.0-1.0); EOS # 0.4 10*3/uL (0.0-0.4); EOS % 4.5 % (1.0-4.0); HEMATOCRIT 34.1 % (37.0-47.0); HEMOGLOBIN 11.1 g/dl (12.0-16.0); LYMPH # 2.5 10*3/uL (1.3-4.4); LYMPH % 27.5 % (27.0-41.0); MEAN CELL VOLUME 97.2 fl (81.0-99.0); MEAN CORPUSCULAR HGB 31.6 pg (27.0-31.0); MEAN CORPUSCULAR HGB CONC 32.6 g/dl (33.0-37.0); MEAN PLATELET VOLUME 10.9 fl (9.6-12.3); MONO # 0.6 10*3/uL (0.1-1.0); MONO % 6.6 % (3.0-9.0); NEUT # 5.5 10*3/uL (2.3-7.9); NEUT % 60.2 % (47.0-73.0); PLATELET COUNT AUTOMATED 296 10*3/uL (130-400); RED BLOOD COUNT 3.51 10*6/uL (4.10-5.10); RED CELL DISTRI WIDTH 12.7 % (0-14.5); WHITE BLOOD COUNT 9.2 10*3/uL (4.8-10.8)
[2017-04-11 06:53] LABS: VITAMIN D, 25-HYDROXY 19.5 ng/mL (30-100)
[2017-04-11 08:00] VITALS: BP 124/80
[2017-04-11] MEDS ORDERED: VITAMIN D5000 UNI1 PO (13:52)
[2017-04-11] MEDS ORDERED: LEVOFLOXACIN500 MG PO (13:52)
== END 2017-04-11 14:36 | disposition home or self-care (01) | DRG 871 ==
LOC: ED 15:13 → ICCU 19:50 → EDHOLD 19:50 → 4E 20:28 → ICCU 21:37
PROVIDERS: Hospitalist; Physician Assistant
DX: A41.9 Sepsis, unspecified organism (principal); N17.0 Acute kidney failure with tubular necrosis; J18.9 Pneumonia, unspecified organism; E87.8 Other disorders of electrolyte and fluid balance, not elsewhere classified; E44.0 Moderate protein-calorie malnutrition; F31.81 Bipolar II disorder; F14.10 Cocaine abuse, uncomplicated; I10 Essential (primary) hypertension; F41.9 Anxiety disorder, unspecified; E78.00 Pure hypercholesterolemia, unspecified; D64.9 Anemia, unspecified; F51.04 Psychophysiologic insomnia; N02.8 Recurrent and persistent hematuria with other morphologic changes; T40.1X1A Poisoning by heroin, accidental (unintentional), initial encounter; R91.8 Other nonspecific abnormal finding of lung field; K27.9 Peptic ulcer, site unspecified, unspecified as acute or chronic, without hemorrhage or perforation; F13.10 Sedative, hypnotic or anxiolytic abuse, uncomplicated; Z68.26 Body mass index [BMI] 26.0-26.9, adult; Y92.89 Other specified places as the place of occurrence of the external cause; Z88.0 Allergy status to penicillin; Z88.1 Allergy status to other antibiotic agents; Z88.8 Allergy status to other drugs, medicaments and biological substances; Z79.899 Other long term (current) drug therapy

== ENCOUNTER → 2017-04-17 | Outpatient (CLI) | payer BC ==
[~2017-04-17] MED LIST changes: +LEVOFLOXACIN500 MG PO; +LITHOBID300 M1 PO; +VALIUM2 MG PO; +VITAMIN D5000 UNI1 PO
[2017-04-17 14:22] LABS: BASO # 0.1 10*3/uL (0.0-0.1); BASO % 0.7 % (0.0-1.0); EOS # 0.9 10*3/uL (0.0-0.4); EOS % 7.6 % (1.0-4.0); HEMATOCRIT 41.1 % (37.0-47.0); HEMOGLOBIN 13.5 g/dl (12.0-16.0); LYMPH # 2.6 10*3/uL (1.3-4.4); LYMPH % 21.8 % (27.0-41.0); MEAN CELL VOLUME 97.6 fl (81.0-99.0); MEAN CORPUSCULAR HGB 32.1 pg (27.0-31.0); MEAN CORPUSCULAR HGB CONC 32.8 g/dl (33.0-37.0); MEAN PLATELET VOLUME 10.2 fl (9.6-12.3); MONO # 0.9 10*3/uL (0.1-1.0); MONO % 7.1 % (3.0-9.0); NEUT # 7.5 10*3/uL (2.3-7.9); NEUT % 62.6 % (47.0-73.0); PLATELET COUNT AUTOMATED 360 10*3/uL (130-400); RED BLOOD COUNT 4.21 10*6/uL (4.10-5.10); RED CELL DISTRI WIDTH 12.6 % (0-14.5)
[2017-04-17 14:39] LABS: ALBUMIN 4.1 gm/dl (3.1-4.5); ALKALINE PHOSPHATASE 95 U/L (45-117); BUN 13 mg/dl (7-24); CHLORIDE 106 mmol/L (98-107); CREATININE 0.92 mg/dL (0.55-1.02); POTASSIUM 4.2 mmol/L (3.5-5.1); SGOT/AST 11 IU/L (3-35); SGPT/ALT 16 U/L (12-78); SODIUM 141 mmol/L (136-145); TOTAL PROTEIN 7.8 gm/dL (6.4-8.2)
== END | disposition home or self-care (01) ==
LOC: LAB 13:46
PROVIDERS: Physician Assistant
DX: Z51.81 Encounter for therapeutic drug level monitoring (principal); Z79.899 Other long term (current) drug therapy

== ENCOUNTER 2017-04-26 19:19 | Inpatient (IN) | payer BC ==
[~2017-04-26] VITALS: Ht 162.6 cm; Wt 70.4 kg
--- NOTE | ~2017-04-26 | EKG ---
[place], [place] ELECTROCARDIOGRAM REPORT NAME: DIXIE HORNER UNIT #: [id number] ROOM: [place] [id number] DOCTOR: MARIA LUISA GALICIA MD BIRTHDATE: [birth year] DOS: 04/26/2017 TIME: 2150 hours. Sinus tachycardia at 118 beats per minute. The tracing is normal. No previous tracing is available for comparison. MARIA LUISA GALICIA MD CM:EKGRPT:ELECTROCARDIOGRAM REPORT [id number] MARIA LUISA GALICIA MD
[2017-04-26 19:36] VITALS: BP 98/00; BP 98/100; BP 98/60
[2017-04-26 19:59] LABS: BILIRUBIN NEGATIVE (NEGATIVE); BLOOD TRACE-INTACT (NEGATIVE); CLARITY SL CLOUDY (CLEAR); COLOR YELLOW (YELLOW); GLUCOSE NEGATIVE (NEGATIVE); KETONE NEGATIVE (NEGATIVE); LEUKO ESTERASE TRACE (NEGATIVE); NITRITE NEGATIVE (NEGATIVE); PH 5.5 (5.0-9.0); SPECIFIC GRAVITY 1.025 (1.005-1.030); UROBILINOGEN 0.2 E.U./dl (0.2-1.0)
[2017-04-26 20:00] LABS: HEMATOCRIT 45.1 % (37.0-47.0); HEMOGLOBIN 14.1 g/dl (12.0-16.0); MEAN CELL VOLUME 102.7 fl (81.0-99.0); MEAN CORPUSCULAR HGB 32.1 pg (27.0-31.0); MEAN CORPUSCULAR HGB CONC 31.3 g/dl (33.0-37.0); PLATELET COUNT AUTOMATED 516 10*3/uL (130-400); RED BLOOD COUNT 4.39 10*6/uL (4.10-5.10); RED CELL DISTRI WIDTH 12.6 % (0-14.5)
[2017-04-26 20:09] LABS: ACT PARTIAL THROMBO TIME 27.5 SECONDS (20.8-31.5)
[2017-04-26 20:12] LABS: BACTERIA 1+; EPITHELIAL CELLS TNTC; HYALINE CAST TNTC
[2017-04-26 20:20] LABS: TOTAL CELLS COUNTED 100 #CELLS
[2017-04-26 20:22] LABS: CKMB 0.7 ng/ml (0.5-3.6); CPK 84 U/L (26-192)
[2017-04-26 20:23] LABS: B-hCG (QUALITATIVE) NEGATIVE (NEGATIVE); PLATELET SUFFICIENCY HIGH (NORMAL)
[2017-04-26 20:24] LABS: ALBUMIN 4.4 gm/dl (3.1-4.5); CREATININE 1.73 mg/dL (0.55-1.02); POTASSIUM 4.9 mmol/L (3.5-5.1); TOTAL PROTEIN 8.3 gm/dL (6.4-8.2)
[2017-04-26 20:25] LABS: WHITE BLOOD COUNT 43.4 10*3/uL (4.8-10.8)
[2017-04-26 20:30] VITALS: BP 100/60
[2017-04-26 20:34] LABS: ACETAMINOPHEN (TYLENOL) < 2.0 ug/ml (10-30); ETHYL ALCOHOL < 3.0 mg/dl (<3)
[2017-04-26 20:37] LABS: THYROID STIM HORMONE (HS) 21.9 uIU/ml (0.358-4.75); TROPONIN I 0.053 ng/ml (<0.045)
[2017-04-26 21:13] VITALS: BP 150/80
[2017-04-26 21:14] LABS: URINE AMPHETAMINES < 1000 (1000ng/ml); URINE BARBITURATES < 200 (200ng/ml); URINE BENZODIAZEPINES > 200 (200ng/ml); URINE CANNABINOIDS (THC) < 50 (50ng/ml); URINE COCAINE < 300 (300ng/ml); URINE METHADONE < 300 (300ng/ml); URINE OPIATES > 300 (300ng/ml)
[2017-04-26 21:15] LABS: URINE PHENCYCLIDINE < 25 (25ng/ml)
[2017-04-26 22:12] VITALS: BP 120/80; BP 121/78
[2017-04-26 23:59] VITALS: BP 120/79
[2017-04-27] MEDS ORDERED: XANAX1 MG PO (00:05)
[2017-04-27 00:28] LABS: HEMOGLOBIN 12.2 g/dl (12.0-16.0); MEAN CORPUSCULAR HGB 31.3 pg (27.0-31.0); MEAN CORPUSCULAR HGB CONC 32.4 g/dl (33.0-37.0); MEAN PLATELET VOLUME 9.8 fl (9.6-12.3); RED CELL DISTRI WIDTH 12.7 % (0-14.5); WHITE BLOOD COUNT 23.6 10*3/uL (4.8-10.8)
[2017-04-27 00:30] LABS: HEMATOCRIT 37.6 % (37.0-47.0); MEAN CELL VOLUME 96.4 fl (81.0-99.0); PLATELET COUNT AUTOMATED 319 10*3/uL (130-400)
[2017-04-27 00:56] LABS: PLATELET SUFFICIENCY NORMAL (NORMAL); TOTAL CELLS COUNTED 100 #CELLS
[2017-04-27 02:50] LABS: BASO % 0.2 % (0.0-1.0); HEMATOCRIT 32.7 % (37.0-47.0); HEMOGLOBIN 10.6 g/dl (12.0-16.0); LYMPH # 1.2 10*3/uL (1.3-4.4); MEAN CELL VOLUME 97.6 fl (81.0-99.0); MEAN CORPUSCULAR HGB 31.6 pg (27.0-31.0); MEAN CORPUSCULAR HGB CONC 32.4 g/dl (33.0-37.0); MEAN PLATELET VOLUME 9.9 fl (9.6-12.3); MONO # 1.2 10*3/uL (0.1-1.0); NEUT # 17.4 10*3/uL (2.3-7.9); NEUT % 87.4 % (47.0-73.0); PLATELET COUNT AUTOMATED 282 10*3/uL (130-400); RED BLOOD COUNT 3.35 10*6/uL (4.10-5.10); RED CELL DISTRI WIDTH 12.8 % (0-14.5); WHITE BLOOD COUNT 19.9 10*3/uL (4.8-10.8)
[2017-04-27 03:09] LABS: ALBUMIN 3.2 gm/dl (3.1-4.5); ALKALINE PHOSPHATASE 72 U/L (45-117); BUN 13 mg/dl (7-24); CHLORIDE 111 mmol/L (98-107); CHOLESTEROL 147 mg/dL (<200); HDL CHOLESTEROL 63 mg/dl (40-60); LDL CHOLESTEROL 65 mg/dL (9-159); PHOSPHOROUS 3.4 mg/dL (2.5-4.9); POTASSIUM 4.1 mmol/L (3.5-5.1); SGOT/AST 24 IU/L (3-35); SGPT/ALT 18 U/L (12-78); SODIUM 142 mmol/L (136-145); TOTAL PROTEIN 5.8 gm/dL (6.4-8.2); TRIGLYCERIDES 96 mg/dl (<150); VLDL CHOLESTEROL 19 mg/dL (6-40)
[2017-04-27 03:59] VITALS: BP 118/52
[2017-04-27 07:06] LABS: VITAMIN D, 25-HYDROXY 19.5 ng/mL (30-100)
== END 2017-04-27 04:15 | disposition short-term general hospital (02) | DRG 871 ==
LOC: ED 19:19 → EDHOLD 21:12 → ICCU 21:16
PROVIDERS: Hospitalist; Internal Medicine
DX: A41.9 Sepsis, unspecified organism (principal); G92 Toxic encephalopathy; E87.2 Acidosis; N17.9 Acute kidney failure, unspecified; E83.41 Hypermagnesemia; F31.81 Bipolar II disorder; N02.8 Recurrent and persistent hematuria with other morphologic changes; T68.XXXA Hypothermia, initial encounter; T40.601A Poisoning by unspecified narcotics, accidental (unintentional), initial encounter; R65.20 Severe sepsis without septic shock; E78.00 Pure hypercholesterolemia, unspecified; F41.9 Anxiety disorder, unspecified; I10 Essential (primary) hypertension; N32.89 Other specified disorders of bladder; D47.3 Essential (hemorrhagic) thrombocythemia; R73.9 Hyperglycemia, unspecified; F11.10 Opioid abuse, uncomplicated; K27.9 Peptic ulcer, site unspecified, unspecified as acute or chronic, without hemorrhage or perforation; F32.9 Major depressive disorder, single episode, unspecified; Z88.0 Allergy status to penicillin; Z88.1 Allergy status to other antibiotic agents; Z88.8 Allergy status to other drugs, medicaments and biological substances; Z82.49 Family history of ischemic heart disease and other diseases of the circulatory system; Z83.3 Family history of diabetes mellitus

== ENCOUNTER → 2017-09-05 | Outpatient (CLI) | payer BC ==
[~2017-09-05] MED LIST changes: +DOXEPIN HCL100 MG PO; +EFFEXOR-XR75 MG PO; +LASIX20 MG PO; +LEVAQUIN750 M1 PO; +POTASSIUM CHLO20 ME3 PO; +SYNTHROID25 MCG PO; +VITAMIN D-32000 UNIT PO; +XANAX1 MG PO
[2017-09-05 14:16] LABS: BILIRUBIN NEGATIVE (NEGATIVE); BLOOD NEGATIVE (NEGATIVE); CLARITY CLEAR (CLEAR); COLOR YELLOW (YELLOW); GLUCOSE NEGATIVE (NEGATIVE); KETONE NEGATIVE (NEGATIVE); LEUKO ESTERASE NEGATIVE (NEGATIVE); NITRITE NEGATIVE (NEGATIVE); PH 6.5 (5.0-9.0); SPECIFIC GRAVITY <= 1.005 (1.005-1.030); UROBILINOGEN 0.2 E.U./dl (0.2-1.0)
[2017-09-05 14:21] LABS: URINE CREATININE RANDOM < 13.00 mg/dL
[2017-09-05 14:28] LABS: BASO # 0.1 10*3/uL (0.0-0.1); BASO % 0.8 % (0.0-1.0); EOS # 0.4 10*3/uL (0.0-0.4); EOS % 4.3 % (1.0-4.0); HEMATOCRIT 39.7 % (37.0-47.0); HEMOGLOBIN 13.1 g/dl (12.0-16.0); LYMPH # 1.7 10*3/uL (1.3-4.4); LYMPH % 19.9 % (27.0-41.0); MEAN CELL VOLUME 98.3 fl (81.0-99.0); MEAN CORPUSCULAR HGB 32.4 pg (27.0-31.0); MEAN PLATELET VOLUME 10.9 fl (9.6-12.3); MONO # 0.6 10*3/uL (0.1-1.0); MONO % 6.5 % (3.0-9.0); NEUT # 5.8 10*3/uL (2.3-7.9); NEUT % 67.8 % (47.0-73.0); PLATELET COUNT AUTOMATED 299 10*3/uL (130-400); RED BLOOD COUNT 4.04 10*6/uL (4.10-5.10); RED CELL DISTRI WIDTH 11.7 % (0-14.5); WHITE BLOOD COUNT 8.5 10*3/uL (4.8-10.8)
[2017-09-05 14:40] LABS: ALBUMIN 3.9 gm/dl (3.1-4.5); BUN 11 mg/dl (7-24); CHLORIDE 106 mmol/L (98-107); CHOLESTEROL 236 mg/dL (<200); CREATININE 1.01 mg/dL (0.55-1.02); HDL CHOLESTEROL 75 mg/dl (40-60); LDL CHOLESTEROL 103 mg/dL (9-159); PHOSPHOROUS 2.5 mg/dL (2.5-4.9); POTASSIUM 3.4 mmol/L (3.5-5.1); SODIUM 141 mmol/L (136-145); TRIGLYCERIDES 291 mg/dl (<150); VLDL CHOLESTEROL 58 mg/dL (6-40)
== END | disposition home or self-care (01) ==
LOC: LAB 12:31
PROVIDERS: Internal Medicine Nephrology
DX: N02.8 Recurrent and persistent hematuria with other morphologic changes (principal)

== ENCOUNTER 2017-09-26 13:39 | Inpatient (IN) | payer BC ==
[~2017-09-26] VITALS: Ht 160 cm; Wt 82.6 kg
--- NOTE | ~2017-09-26 | CON ---
[place], [place] REPORT OF CONSULTATION NAME: DIXIE HORNER [facility] CLINICT #: [id number] UNIT #: [id number] ROOM: 428 DOCTOR: HERIBERTO TEJEDA MD BIRTHDATE: [birth year] DOS: 09/27/2017 CARDIOLOGY CONSULTATION CHIEF COMPLAINT: Chest pain. HISTORY OF PRESENT ILLNESS: The patient was seen today at her bedside on 09/27/2017 with her mother in attendance. She is a 42-year-old woman, who has no previously documented history of coronary artery disease. She does have a long history of anxiety and drug abuse. She was evaluated for possible endocarditis in September 2014, but a transesophageal echocardiogram done at that time was unremarkable. She presented to the hospital on this occasion with chest pain, which started in her left anterior chest and radiated under her left breast on the night of 09/25/2017. The pain worsened with deep breath, cough or laughing. She reported that she had recently been treated for pneumonia. In the Emergency Room, her chest x-ray indicated a left lower lobe infiltrate and this was confirmed by CAT scan. Nonetheless, she does have risk factors for heart disease, and we were asked to assist in her assessment. PAST MEDICAL HISTORY: Includes the followin. IgA nephropathy, followed by Dr. Fito Lentz. 2. Essential hypertension. 3. Peptic ulcer disease. 4. Anxiety and depression. 5. History of drug abuse, utilizing cocaine, heroin, etc. She does have a history of bipolar disorder, which complicates the management of her drug abuse. 6. History of hypercholesterolemia. 7. History of opiate overdose. 8. History of suicide attempt (patient not currently suicidal). 9. History of wisdom tooth extractions. FAMILY HISTORY: The patient's father is alive and well at age 66. Her mother is age 67 and had a left bundle branch block, but apparently a normal cardiac evaluation. Aside from that several other family members have had heart attacks in their 50s including grandparents, uncles, aunts, etc. MEDICATIONS: Prior to admission, alprazolam 1 mg b.i.d., doxepin 100 mg at bedtime, furosemide 20 mg daily, gabapentin 600 mg t.i.d., lithium 600 mg b.i.d., potassium 20 mEq daily, valsartan 80 mg daily, and venlafaxine 75 mg daily. ALLERGIES: BACITRACIN, NEOMYCIN, POLYMYXIN, PENICILLINS, AND CAT DANDER. REVIEW OF SYSTEMS: The patient denies diplopia or loss of vision. She denies focal weakness. She denies lightheadedness or syncope. She denies nausea or vomiting. She denies fevers, chills or sweats. She believes that her weight has been going up lately. She also believes that her abdomen and legs have been more swollen lately. She did start on furosemide lately without much change. [place], [place] REPORT OF CONSULTATION NAME: DIXIE HORNER UNIT #: [id number] ROOM: 428 DOCTOR: HERIBERTO TEJEDA MD BIRTHDATE: [birth year] She denies change in bowel or bladder habits and denies blood in her stools or urine. She does have pedal edema as noted above. She denies any skin rashes. Remainder of the review of systems is negative except as noted above. SOCIAL HISTORY: The patient does not smoke, but she does use cocaine and heroin and consumes alcohol socially. PHYSICAL EXAMINATION: GENERAL: The patient is an overweight white female, awake, alert and oriented. VITAL SIGNS: Pulse is 100 and regular, blood pressure is 125/80. She is afebrile. She weighs 82.6 kg and has a body mass index of 32.3. HEENT: Normocephalic and atraumatic. Extraocular muscles are intact. Sclerae are clear. Pupils are equal, round and react to light. She has no scleral hemorrhages or icterus. NECK: Supple. She has no jugular distention. Her carotids are full without bruits. Her thyroid does feel somewhat full, but I do not note any specific nodules. LUNGS: Respirations are unlabored. Her chest is clear to auscultation and percussion. She has no presacral edema or chest wall tenderness. HEART: Has a regular rhythm. She has a fourth heart sound, but no third heart sound or murmur. The PMI is not displaced. There is no precordial heave, lift or thrill. ABDOMEN: Obese, but otherwise benign, without masses, organomegaly, bruits or tenderness. There is no fluid wave. EXTREMITIES: Showed trace ankle edema bilaterally. Peripheral pulses are easily palpated bilaterally. LABORATORY DATA: Hemoglobin is 11.7, white count 12,200. Sodium 143, potassium 4.3, BUN 15, creatinine 1.09. Her urine drug screen is positive for cocaine metabolites. Chest x-ray and CT scan of the chest show evidence for a left lower lobe pneumonia. Lower extremity venous ultrasound showed no DVT. IMPRESSIONS: 1. Pleuritic left chest pain with abnormal chest x-ray consistent with pneumonia. The patient's EKGs have been normal and her enzymes have shown no signs of myocardial injury. It is therefore most likely that her pains are due to pneumonia. 2. Peripheral edema, etiology to be determined. 3. History of drug abuse. 4. Severe depression and anxiety. 5. History of IgA nephropathy. 6. History of hypertension. PLAN: We will review the results of her echocardiogram when they are available. At this point, I see no good indication for stress testing or other cardiac evaluation unless her ultrasound shows wall motion abnormalities, LV dysfunction, etc. [place], [place] REPORT OF CONSULTATION NAME: DIXIE HORNER UNIT #: [id number] ROOM: [facility] DOCTOR: HERIBERTO TEJEDA MD BIRTHDATE: [birth year] We will follow the patient with her other physicians and I thank the hospitalist team for asking our advice regarding her care. HERIBERTO TEJEDA MD CM:CONSTR:REPORT OF CONSULTATION 1524 09/28/17 1957 interface
[~2017-09-26 13:39] MED LIST changes: -DOXEPIN HCL100 MG PO; -EFFEXOR-XR75 MG PO; -LASIX20 MG PO; -LEVAQUIN750 M1 PO; -POTASSIUM CHLO20 ME3 PO; -SYNTHROID25 MCG PO; -VITAMIN D-32000 UNIT PO
[2017-09-26 13:52] VITALS: BP 136/86
[2017-09-26 14:15] LABS: BASO # 0.1 10*3/uL (0.0-0.1); BASO % 0.7 % (0.0-1.0); EOS # 0.3 10*3/uL (0.0-0.4); EOS % 2.9 % (1.0-4.0); HEMATOCRIT 36.7 % (37.0-47.0); LYMPH # 1.7 10*3/uL (1.3-4.4); LYMPH % 15.8 % (27.0-41.0); MEAN CELL VOLUME 98.1 fl (81.0-99.0); MEAN CORPUSCULAR HGB 32.1 pg (27.0-31.0); MEAN CORPUSCULAR HGB CONC 32.7 g/dl (33.0-37.0); MEAN PLATELET VOLUME 9.3 fl (9.6-12.3); MONO # 0.9 10*3/uL (0.1-1.0); MONO % 8.6 % (3.0-9.0); NEUT # 7.7 10*3/uL (2.3-7.9); NEUT % 71.6 % (47.0-73.0); PLATELET COUNT AUTOMATED 303 10*3/uL (130-400); RED BLOOD COUNT 3.74 10*6/uL (4.10-5.10); RED CELL DISTRI WIDTH 11.9 % (0-14.5); WHITE BLOOD COUNT 10.7 10*3/uL (4.8-10.8)
[2017-09-26 14:25] LABS: ACT PARTIAL THROMBO TIME 30.8 SECONDS (20.8-31.5); INTERNATIONAL NORM RATIO 0.9 (2.0-3.5)
[2017-09-26 14:33] LABS: ALBUMIN 3.8 gm/dl (3.1-4.5); ALKALINE PHOSPHATASE 124 U/L (45-117); BUN 13 mg/dl (7-24); CHLORIDE 108 mmol/L (98-107); POTASSIUM 3.4 mmol/L (3.5-5.1); SGOT/AST 8 IU/L (3-35); SGPT/ALT 19 U/L (12-78); SODIUM 141 mmol/L (136-145); TOTAL PROTEIN 7.7 gm/dL (6.4-8.2)
[2017-09-26 14:34] LABS: TROPONIN I < 0.015 ng/ml (<0.045)
[2017-09-26 15:07] VITALS: BP 121/78
[2017-09-26 15:45] VITALS: BP 118/67
[2017-09-26 17:10] LABS: BILIRUBIN NEGATIVE (NEGATIVE); BLOOD NEGATIVE (NEGATIVE); CLARITY CLEAR (CLEAR); COLOR YELLOW (YELLOW); GLUCOSE NEGATIVE (NEGATIVE); KETONE NEGATIVE (NEGATIVE); LEUKO ESTERASE NEGATIVE (NEGATIVE); NITRITE NEGATIVE (NEGATIVE); PH 6.5 (5.0-9.0); UROBILINOGEN 0.2 E.U./dl (0.2-1.0)
[2017-09-26 17:19] LABS: BACTERIA TRACE; EPITHELIAL CELLS 35-40; URINE AMPHETAMINES < 1000 (1000ng/ml); URINE BARBITURATES < 200 (200ng/ml); URINE BENZODIAZEPINES > 200 (200ng/ml); URINE CANNABINOIDS (THC) < 50 (50ng/ml); URINE COCAINE > 300 (300ng/ml); URINE METHADONE < 300 (300ng/ml); URINE OPIATES < 300 (300ng/ml)
[2017-09-26 17:20] LABS: URINE PHENCYCLIDINE < 25 (25ng/ml)
[2017-09-26] MEDS ORDERED: DOXEPIN HCL100 MG PO (17:40)
[2017-09-26] MEDS ORDERED: EFFEXOR-XR75 MG PO (17:42)
[2017-09-26] MEDS ORDERED: LASIX20 MG PO (17:42)
[2017-09-26] MEDS ORDERED: POTASSIUM CHLO20 ME3 PO (17:43)
[2017-09-26 20:00] VITALS: BP 130/73
[2017-09-27] VITALS: BP 101/63
[2017-09-27 06:25] LABS: BASO % 0.3 % (0.0-1.0); EOS # 0.4 10*3/uL (0.0-0.4); EOS % 3.2 % (1.0-4.0); HEMATOCRIT 36.5 % (37.0-47.0); HEMOGLOBIN 11.7 g/dl (12.0-16.0); LYMPH # 1.2 10*3/uL (1.3-4.4); LYMPH % 9.6 % (27.0-41.0); MEAN CELL VOLUME 99.7 fl (81.0-99.0); MEAN CORPUSCULAR HGB CONC 32.1 g/dl (33.0-37.0); MEAN PLATELET VOLUME 9.6 fl (9.6-12.3); MONO # 0.9 10*3/uL (0.1-1.0); MONO % 7.2 % (3.0-9.0); NEUT # 9.6 10*3/uL (2.3-7.9); NEUT % 79.3 % (47.0-73.0); PLATELET COUNT AUTOMATED 316 10*3/uL (130-400); RED BLOOD COUNT 3.66 10*6/uL (4.10-5.10); RED CELL DISTRI WIDTH 12.3 % (0-14.5); WHITE BLOOD COUNT 12.2 10*3/uL (4.8-10.8)
[2017-09-27 06:32] LABS: INTERNATIONAL NORM RATIO 0.9 (2.0-3.5)
[2017-09-27 06:38] LABS: ALBUMIN 3.5 gm/dl (3.1-4.5); BUN 15 mg/dl (7-24); CHLORIDE 110 mmol/L (98-107); CHOLESTEROL 205 mg/dL (<200); CREATININE 1.09 mg/dL (0.55-1.02); FREE T4 0.71 ng/dl (0.76-1.46); PHOSPHOROUS 2.3 mg/dL (2.5-4.9); POTASSIUM 4.3 mmol/L (3.5-5.1); SGOT/AST 9 IU/L (3-35); SGPT/ALT 18 U/L (12-78); SODIUM 143 mmol/L (136-145); TOTAL PROTEIN 7.4 gm/dL (6.4-8.2); TRIGLYCERIDES 175 mg/dl (<150); VLDL CHOLESTEROL 35 mg/dL (6-40)
[2017-09-27 06:40] LABS: ALKALINE PHOSPHATASE 127 U/L (45-117); HDL CHOLESTEROL 92 mg/dl (40-60); LDL CHOLESTEROL 78 mg/dL (9-159)
[2017-09-27 08:00] VITALS: BP 119/83
[2017-09-27 09:25] LABS: VITAMIN D, 25-HYDROXY 21.1 ng/mL (30-100)
[2017-09-27 12:00] VITALS: BP 125/80
[2017-09-27 16:00] VITALS: BP 116/89
[2017-09-27 20:00] VITALS: BP 103/76
[2017-09-28] VITALS: BP 103/62
[2017-09-28 07:48] LABS: BASO # 0.1 10*3/uL (0.0-0.1); BASO % 0.5 % (0.0-1.0); EOS # 0.5 10*3/uL (0.0-0.4); EOS % 4.6 % (1.0-4.0); HEMATOCRIT 36.4 % (37.0-47.0); HEMOGLOBIN 11.2 g/dl (12.0-16.0); LYMPH # 1.4 10*3/uL (1.3-4.4); LYMPH % 13.8 % (27.0-41.0); MEAN CORPUSCULAR HGB 31.7 pg (27.0-31.0); MEAN CORPUSCULAR HGB CONC 30.8 g/dl (33.0-37.0); MEAN PLATELET VOLUME 9.1 fl (9.6-12.3); MONO # 0.8 10*3/uL (0.1-1.0); MONO % 7.9 % (3.0-9.0); NEUT # 7.3 10*3/uL (2.3-7.9); NEUT % 72.7 % (47.0-73.0); PLATELET COUNT AUTOMATED 283 10*3/uL (130-400); RED BLOOD COUNT 3.53 10*6/uL (4.10-5.10); RED CELL DISTRI WIDTH 12.3 % (0-14.5)
[2017-09-28 07:49] LABS: MEAN CELL VOLUME 103.1 fl (81.0-99.0)
[2017-09-28 07:59] LABS: BUN 15 mg/dl (7-24); CHLORIDE 111 mmol/L (98-107); CREATININE 1.05 mg/dL (0.55-1.02); POTASSIUM 4.6 mmol/L (3.5-5.1); SODIUM 143 mmol/L (136-145)
[2017-09-28 08:00] VITALS: BP 127/74
[2017-09-28] MEDS ORDERED: LEVAQUIN750 M1 PO (10:19)
[2017-09-28] MEDS ORDERED: SYNTHROID25 MCG PO (10:19)
[2017-09-28] MEDS ORDERED: VITAMIN D-32000 UNIT PO (10:19)
== END 2017-09-28 11:10 | disposition home or self-care (01) | DRG 871 ==
LOC: ED 13:39 → EDHOLD 15:57 → 4E 15:57
PROVIDERS: Emergency Medicine; Family Medicine; Registered Nurse
DX: A41.9 Sepsis, unspecified organism (principal); J18.1 Lobar pneumonia, unspecified organism; E87.8 Other disorders of electrolyte and fluid balance, not elsewhere classified; N02.8 Recurrent and persistent hematuria with other morphologic changes; F31.81 Bipolar II disorder; E87.6 Hypokalemia; E55.9 Vitamin D deficiency, unspecified; E83.41 Hypermagnesemia; E03.9 Hypothyroidism, unspecified; E78.00 Pure hypercholesterolemia, unspecified; E83.39 Other disorders of phosphorus metabolism; F19.90 Other psychoactive substance use, unspecified, uncomplicated; F14.90 Cocaine use, unspecified, uncomplicated; F41.9 Anxiety disorder, unspecified; I10 Essential (primary) hypertension; Z88.1 Allergy status to other antibiotic agents; Z88.0 Allergy status to penicillin; Z88.8 Allergy status to other drugs, medicaments and biological substances; Z79.899 Other long term (current) drug therapy; Z87.11 Personal history of peptic ulcer disease; Z83.3 Family history of diabetes mellitus; Z82.49 Family history of ischemic heart disease and other diseases of the circulatory system; Z87.01 Personal history of pneumonia (recurrent)

== ENCOUNTER → 2017-10-23 | Outpatient (CLI) | payer BC ==
[~2017-10-23] MED LIST changes: +DOXEPIN HCL100 MG PO; +EFFEXOR-XR75 MG PO; +LASIX20 MG PO; +LEVAQUIN750 M1 PO; +POTASSIUM CHLO20 ME3 PO; +SYNTHROID25 MCG PO; +VITAMIN D-32000 UNIT PO
== END | disposition home or self-care (01) ==
LOC: RAD 11:45
DX: J18.9 Pneumonia, unspecified organism (principal); I10 Essential (primary) hypertension

== ENCOUNTER → 2018-05-22 | Outpatient (CLI) | payer BC ==
[2018-05-22 14:17] LABS: BASO % 0.5 % (0.0-1.0); EOS # 0.2 10*3/uL (0.0-0.4); EOS % 2.6 % (1.0-4.0); HEMATOCRIT 44.7 % (37.0-47.0); HEMOGLOBIN 14.3 g/dl (12.0-16.0); LYMPH # 2.1 10*3/uL (1.3-4.4); LYMPH % 23.9 % (27.0-41.0); MEAN CELL VOLUME 96.5 fl (81.0-99.0); MEAN CORPUSCULAR HGB 30.9 pg (27.0-31.0); MEAN PLATELET VOLUME 9.9 fl (9.6-12.3); MONO # 0.6 10*3/uL (0.1-1.0); NEUT # 5.7 10*3/uL (2.3-7.9); NEUT % 65.7 % (47.0-73.0); PLATELET COUNT AUTOMATED 293 10*3/uL (130-400); RED BLOOD COUNT 4.63 10*6/uL (4.10-5.10); RED CELL DISTRI WIDTH 12.7 % (0-14.5); WHITE BLOOD COUNT 8.7 10*3/uL (4.8-10.8)
[2018-05-22 14:21] LABS: BILIRUBIN NEGATIVE (NEGATIVE); BLOOD NEGATIVE (NEGATIVE); CLARITY SL CLOUDY (CLEAR); COLOR YELLOW (YELLOW); GLUCOSE NEGATIVE (NEGATIVE); KETONE NEGATIVE (NEGATIVE); LEUKO ESTERASE 3+ (NEGATIVE); NITRITE NEGATIVE (NEGATIVE); PH 6.5 (5.0-9.0); SPECIFIC GRAVITY <= 1.005 (1.005-1.030); UROBILINOGEN 0.2 E.U./dl (0.2-1.0)
[2018-05-22 14:29] LABS: URINE CREATININE RANDOM 26.4 mg/dL
[2018-05-22 14:31] LABS: BACTERIA 2+; WBC 51-100 wbc/hpf (0-5)
[2018-05-22 14:43] LABS: ALBUMIN 4.1 gm/dl (3.1-4.5); CREATININE 1.22 mg/dL (0.55-1.02); PHOSPHOROUS 3.2 mg/dL (2.5-4.9); POTASSIUM 3.4 mmol/L (3.5-5.1)
== END | disposition home or self-care (01) ==
LOC: LAB 13:33
PROVIDERS: Internal Medicine Nephrology
DX: N02.8 Recurrent and persistent hematuria with other morphologic changes (principal)

== ENCOUNTER → 2018-09-20 | Outpatient (CLI) | payer BC ==
[2018-09-20 16:45] LABS: BILIRUBIN NEGATIVE (NEGATIVE); BLOOD 2+ (NEGATIVE); CLARITY CLEAR (CLEAR); COLOR YELLOW (YELLOW); GLUCOSE NEGATIVE (NEGATIVE); KETONE NEGATIVE (NEGATIVE); LEUKO ESTERASE NEGATIVE (NEGATIVE); NITRITE NEGATIVE (NEGATIVE); SPECIFIC GRAVITY <= 1.005 (1.005-1.030); UROBILINOGEN 0.2 E.U./dl (0.2-1.0)
[2018-09-20 16:46] LABS: BASO # 0.1 10*3/uL (0.0-0.1); BASO % 0.7 % (0.0-1.0); EOS # 0.4 10*3/uL (0.0-0.4); EOS % 4.9 % (1.0-4.0); HEMATOCRIT 44.3 % (37.0-47.0); HEMOGLOBIN 14.6 g/dl (12.0-16.0); LYMPH # 1.9 10*3/uL (1.3-4.4); LYMPH % 25.2 % (27.0-41.0); MEAN CELL VOLUME 97.8 fl (81.0-99.0); MEAN CORPUSCULAR HGB 32.2 pg (27.0-31.0); MEAN PLATELET VOLUME 10.3 fl (9.6-12.3); MONO # 0.5 10*3/uL (0.1-1.0); MONO % 6.1 % (3.0-9.0); NEUT # 4.6 10*3/uL (2.3-7.9); NEUT % 62.8 % (47.0-73.0); PLATELET COUNT AUTOMATED 265 10*3/uL (130-400); RED BLOOD COUNT 4.53 10*6/uL (4.10-5.10); RED CELL DISTRI WIDTH 12.1 % (0-14.5); WHITE BLOOD COUNT 7.4 10*3/uL (4.8-10.8)
[2018-09-20 16:57] LABS: WBC 0-2 wbc/hpf (0-5)
[2018-09-20 17:17] LABS: ALBUMIN 4.2 gm/dl (3.1-4.5); BUN 12 mg/dl (7-24); CHLORIDE 108 mmol/L (98-107); POTASSIUM 3.6 mmol/L (3.5-5.1); SODIUM 140 mmol/L (136-145)
[2018-09-20 17:24] LABS: CHOLESTEROL 223 mg/dL (<200); CREATININE 1.04 mg/dL (0.55-1.02); HDL CHOLESTEROL 59 mg/dl (40-60); LDL CHOLESTEROL 117 mg/dL (9-159); PHOSPHOROUS 1.8 mg/dL (2.5-4.9); TRIGLYCERIDES 233 mg/dl (<150); VLDL CHOLESTEROL 47 mg/dL (6-40)
== END | disposition home or self-care (01) ==
LOC: LAB 16:16
PROVIDERS: Internal Medicine Nephrology
DX: N02.8 Recurrent and persistent hematuria with other morphologic changes (principal)

== ENCOUNTER → 2018-10-02 | Outpatient (CLI) | payer BC | END | disposition home or self-care (01) | LOC: RAD 18:18 | DX: R06.02 Shortness of breath (principal); N28.9 Disorder of kidney and ureter, unspecified; R05 Cough ==

== ENCOUNTER → 2018-12-17 | Outpatient (CLI) | payer BC | END | disposition home or self-care (01) | LOC: RAD 15:26 | DX: M25.471 Effusion, right ankle (principal); M25.571 Pain in right ankle and joints of right foot ==

== ENCOUNTER → 2018-12-27 | Outpatient (CLI) | payer BC | END | disposition home or self-care (01) | LOC: LAB 14:42 → MRI 14:42 → LAB 15:00 → MRI 15:00 | DX: M19.071 Primary osteoarthritis, right ankle and foot (principal); I73.1 Thromboangiitis obliterans [Buerger's disease] ==

== ENCOUNTER 2019-12-06 11:24 | Emergency (ER) | payer BC ==
[~2019-12-06] VITALS: Wt 75.3 kg
[2019-12-06 11:53] LABS: BASO # 0.1 10*3/uL (0.0-0.1); BASO % 0.7 % (0.0-1.0); EOS # 0.2 10*3/uL (0.0-0.4); EOS % 2.5 % (1.0-4.0); HEMATOCRIT 43.1 % (37.0-47.0); LYMPH # 1.9 10*3/uL (1.3-4.4); LYMPH % 26.6 % (27.0-41.0); MEAN CELL VOLUME 92.9 fl (81.0-99.0); MEAN CORPUSCULAR HGB 31.3 pg (27.0-31.0); MEAN CORPUSCULAR HGB CONC 33.6 g/dl (33.0-37.0); MEAN PLATELET VOLUME 10.5 fl (9.6-12.3); MONO # 0.5 10*3/uL (0.1-1.0); NEUT # 4.5 10*3/uL (2.3-7.9); NEUT % 63.1 % (47.0-73.0); PLATELET COUNT AUTOMATED 288 10*3/uL (130-400); RED BLOOD COUNT 4.64 10*6/uL (4.10-5.10); RED CELL DISTRI WIDTH 11.9 % (0-14.5); WHITE BLOOD COUNT 7.2 10*3/uL (4.8-10.8)
[2019-12-06 12:03] LABS: ACT PARTIAL THROMBO TIME 27.9 SECONDS (20.0-32.1); INTERNATIONAL NORM RATIO 0.9 (2.0-3.5)
[2019-12-06 12:11] LABS: ALBUMIN 4.4 gm/dl (3.1-4.5); ALKALINE PHOSPHATASE 116 U/L (45-117); BUN 13 mg/dl (7-24); CHLORIDE 113 mmol/L (98-107); SGOT/AST 25 IU/L (3-35); SGPT/ALT 37 U/L (12-78); SODIUM 141 mmol/L (136-145); TOTAL PROTEIN 8.3 gm/dL (6.4-8.2)
[2019-12-06 12:13] LABS: POTASSIUM 4.5 mmol/L (3.5-5.1); TROPONIN I < 0.015 ng/ml (<0.045)
[2019-12-06 12:27] LABS: BILIRUBIN NEGATIVE; BLOOD NEGATIVE (NEGATIVE); CLARITY CLOUDY (CLEAR); COLOR YELLOW (YELLOW); GLUCOSE NEGATIVE; KETONE NEGATIVE; NITRITE NEGATIVE (NEGATIVE); PH 5.5 (4.5-8.0); UROBILINOGEN 0.2 E.U./dl (0.0-1.0)
[2019-12-06 12:28] LABS: BACTERIA 2+; LEUKO ESTERASE TRACE (NEGATIVE)
[2019-12-06] MEDS ORDERED: 'CLONIDINE0.1 MG PO (15:42)
== END 2019-12-06 15:45 | disposition home or self-care (01) ==
LOC: ED 11:24
PROVIDERS: Nurse Practitioner Family
DX: I10 Essential (primary) hypertension (principal); F31.9 Bipolar disorder, unspecified; Z88.8 Allergy status to other drugs, medicaments and biological substances; Z79.899 Other long term (current) drug therapy

== ENCOUNTER → 2019-12-31 | Outpatient (CLI) | payer BC ==
[~2019-12-31] MED LIST changes: +'CLONIDINE0.1 MG PO
[2019-12-31 12:37] LABS: BILIRUBIN Negative; BLOOD Negative (Negative); CLARITY Cloudy (Clear); COLOR Yellow (Yellow); GLUCOSE Negative; KETONE Negative; LEUKO ESTERASE Trace (Negative); NITRITE Negative (Negative); PH 5.5 (4.5-8.0); SPECIFIC GRAVITY 1.015 (1.001-1.030); UROBILINOGEN 0.2 E.U./dl (0.0-1.0)
[2019-12-31 12:45] LABS: BASO % 0.6 % (0.0-1.0); EOS # 0.1 10*3/uL (0.0-0.4); EOS % 1.7 % (1.0-4.0); HEMATOCRIT 43.9 % (37.0-47.0); LYMPH # 1.6 10*3/uL (1.3-4.4); LYMPH % 23.8 % (27.0-41.0); MEAN CELL VOLUME 95.4 fl (81.0-99.0); MEAN CORPUSCULAR HGB 31.5 pg (27.0-31.0); MEAN PLATELET VOLUME 10.7 fl (9.6-12.3); MONO # 0.4 10*3/uL (0.1-1.0); MONO % 5.8 % (3.0-9.0); NEUT # 4.4 10*3/uL (2.3-7.9); NEUT % 67.8 % (47.0-73.0); PLATELET COUNT AUTOMATED 236 10*3/uL (130-400); RED CELL DISTRI WIDTH 12.3 % (0-14.5); WHITE BLOOD COUNT 6.5 10*3/uL (4.8-10.8)
[2019-12-31 12:47] LABS: MUCOUS 1+
[2019-12-31 12:58] LABS: ALBUMIN 4.3 gm/dl (3.1-4.5); BUN 11 mg/dl (7-24); CHLORIDE 108 mmol/L (98-107); CHOLESTEROL 247 mg/dL (<200); HDL CHOLESTEROL 59 mg/dl (40-60); POTASSIUM 3.3 mmol/L (3.5-5.1); SODIUM 138 mmol/L (136-145); TRIGLYCERIDES 437 mg/dl (<150)
== END | disposition home or self-care (01) ==
LOC: LAB 11:45
PROVIDERS: ATTEND Internal Medicine Nephrology
DX: N02.8 Recurrent and persistent hematuria with other morphologic changes (principal)

== ENCOUNTER → 2020-01-17 | Outpatient (CLI) | payer BC | END | disposition home or self-care (01) | LOC: US 13:00 | PROVIDERS: ATTEND Obstetrics & Gynecology | DX: N93.9 Abnormal uterine and vaginal bleeding, unspecified (principal) ==

== ENCOUNTER → 2020-04-27 | Outpatient (CLI) | payer BC | END | disposition home or self-care (01) | LOC: LAB 13:58 | PROVIDERS: ATTEND Nurse Practitioner | DX: F31.63 Bipolar disorder, current episode mixed, severe, without psychotic features (principal); F40.01 Agoraphobia with panic disorder; F19.10 Other psychoactive substance abuse, uncomplicated ==

== ENCOUNTER → 2020-06-23 | Outpatient (CLI) | payer BC ==
[2020-06-23 11:18] LABS: BASO # 0.1 10*3/uL (0.0-0.1); BASO % 0.5 % (0.0-1.0); EOS # 0.1 10*3/uL (0.0-0.4); EOS % 1.2 % (1.0-4.0); LYMPH # 1.9 10*3/uL (1.3-4.4); LYMPH % 17.4 % (27.0-41.0); MEAN CELL VOLUME 96.8 fl (81.0-99.0); MEAN CORPUSCULAR HGB 31.8 pg (27.0-31.0); MEAN CORPUSCULAR HGB CONC 32.8 g/dl (33.0-37.0); MEAN PLATELET VOLUME 9.7 fl (9.6-12.3); MONO # 0.8 10*3/uL (0.1-1.0); MONO % 7.3 % (3.0-9.0); NEUT % 73.1 % (47.0-73.0); PLATELET COUNT AUTOMATED 326 10*3/uL (130-400); RED BLOOD COUNT 4.75 10*6/uL (4.10-5.10); RED CELL DISTRI WIDTH 12.8 % (0-14.5); WHITE BLOOD COUNT 10.9 10*3/uL (4.8-10.8)
[2020-06-23 11:30] LABS: BILIRUBIN Negative (Negative); BLOOD Negative (Negative); CLARITY Clear (Clear); COLOR Yellow (Yellow); GLUCOSE Negative (Negative); KETONE Negative (Negative); LEUKO ESTERASE Negative (Negative); NITRITE Negative (Negative); SPECIFIC GRAVITY <= 1.005 (1.001-1.030); UROBILINOGEN 0.2 E.U./dl (0.0-1.0)
[2020-06-23 11:49] LABS: ALBUMIN 4.3 gm/dl (3.1-4.5); BUN 15 mg/dl (7-24); CHLORIDE 106 mmol/L (98-107); CHOLESTEROL 223 mg/dL (<200); CREATININE 0.99 mg/dL (0.55-1.02); HDL CHOLESTEROL 90 mg/dl (40-60); LDL CHOLESTEROL 90 mg/dL (9-159); POTASSIUM 4.3 mmol/L (3.5-5.1); SODIUM 139 mmol/L (136-145); TRIGLYCERIDES 217 mg/dl (<150); VLDL CHOLESTEROL 43 mg/dL (6-40)
[2020-06-23 12:58] LABS: BACTERIA TRACE
[2020-06-23 13:12] LABS: PTH INTACT 116.7 pg/mL (18.5-88.0); VITAMIN D, 25-HYDROXY 33.3 ng/mL (30-100)
== END | disposition home or self-care (01) ==
LOC: LAB 10:53
PROVIDERS: ATTEND Internal Medicine Nephrology
DX: N18.2 Chronic kidney disease, stage 2 (mild) (principal); N02.8 Recurrent and persistent hematuria with other morphologic changes

== ENCOUNTER 2020-12-29 16:19 | Emergency (ER) | payer BC ==
[~2020-12-29] VITALS: Ht 160 cm; Wt 81.6 kg
[2020-12-29 19:38] LABS: BASO # 0.1 10*3/uL (0.0-0.1); BASO % 0.6 % (0.0-1.0); EOS # 0.2 10*3/uL (0.0-0.4); EOS % 2.9 % (1.0-4.0); HEMATOCRIT 44.9 % (37.0-47.0); LYMPH # 2.5 10*3/uL (1.3-4.4); LYMPH % 32.3 % (27.0-41.0); MEAN CELL VOLUME 95.1 fl (81.0-99.0); MEAN CORPUSCULAR HGB 31.4 pg (27.0-31.0); MEAN PLATELET VOLUME 9.1 fl (9.6-12.3); MONO # 0.6 10*3/uL (0.1-1.0); MONO % 8.2 % (3.0-9.0); NEUT # 4.3 10*3/uL (2.3-7.9); NEUT % 55.7 % (47.0-73.0); PLATELET COUNT AUTOMATED 345 10*3/uL (130-400); RED BLOOD COUNT 4.72 10*6/uL (4.10-5.10); RED CELL DISTRI WIDTH 11.9 % (0-14.5); WHITE BLOOD COUNT 7.7 10*3/uL (4.8-10.8)
[2020-12-29 19:54] LABS: ALBUMIN 4.1 gm/dl (3.1-4.5); ALKALINE PHOSPHATASE 82 U/L (45-117); BUN 10 mg/dl (7-24); CHLORIDE 107 mmol/L (98-107); POTASSIUM 4.1 mmol/L (3.5-5.1); SGOT/AST 14 IU/L (3-35); SGPT/ALT 16 U/L (12-78); SODIUM 140 mmol/L (136-145); TOTAL PROTEIN 7.9 gm/dL (6.4-8.2)
[2020-12-29] MEDS ORDERED: ZITHROMAX250 MG PO (22:32)
[2020-12-29] MEDS ORDERED: PREDNISONE20 M1 PO (22:32)
== END 2020-12-29 23:09 | disposition home or self-care (01) ==
LOC: ED 16:19
PROVIDERS: Physician Assistant
DX: J40 Bronchitis, not specified as acute or chronic (principal); Z20.822 Contact with and (suspected) exposure to COVID-19; Z88.0 Allergy status to penicillin; Z88.1 Allergy status to other antibiotic agents; Z79.899 Other long term (current) drug therapy

== ENCOUNTER → 2021-01-11 | Outpatient (CLI) | payer BC ==
[~2021-01-11] MED LIST changes: +PREDNISONE20 M1 PO; +ZITHROMAX250 MG PO
[2021-01-11 12:28] LABS: BASO # 0.1 10*3/uL (0.0-0.1); EOS # 0.1 10*3/uL (0.0-0.4); EOS % 1.8 % (1.0-4.0); HEMATOCRIT 42.1 % (37.0-47.0); LYMPH # 2.2 10*3/uL (1.3-4.4); MEAN CELL VOLUME 96.3 fl (81.0-99.0); MEAN CORPUSCULAR HGB CONC 33.3 g/dl (33.0-37.0); MEAN PLATELET VOLUME 9.2 fl (9.6-12.3); MONO # 0.5 10*3/uL (0.1-1.0); MONO % 7.7 % (3.0-9.0); NEUT # 3.9 10*3/uL (2.3-7.9); NEUT % 57.1 % (47.0-73.0); PLATELET COUNT AUTOMATED 259 10*3/uL (130-400); RED BLOOD COUNT 4.37 10*6/uL (4.10-5.10); RED CELL DISTRI WIDTH 12.4 % (0-14.5); WHITE BLOOD COUNT 6.8 10*3/uL (4.8-10.8)
[2021-01-11 12:42] LABS: ALBUMIN 3.7 gm/dl (3.1-4.5); BUN 11 mg/dl (7-24); CHLORIDE 108 mmol/L (98-107); CHOLESTEROL 237 mg/dL (<200); LDL CHOLESTEROL 115 mg/dL (9-159); POTASSIUM 4.1 mmol/L (3.5-5.1); SODIUM 139 mmol/L (136-145); TRIGLYCERIDES 256 mg/dl (<150)
[2021-01-11 13:09] LABS: BILIRUBIN Negative (Negative); BLOOD Negative (Negative); CLARITY Cloudy (Clear); COLOR Yellow (Yellow); GLUCOSE Negative (Negative); KETONE Negative (Negative); LEUKO ESTERASE Negative (Negative); NITRITE Negative (Negative); SPECIFIC GRAVITY <= 1.005 (1.001-1.030); UROBILINOGEN 0.2 E.U./dl (0.0-1.0)
[2021-01-11 13:17] LABS: PTH INTACT 138.4 pg/mL (18.5-88.0); VITAMIN D, 25-HYDROXY 22.7 ng/mL (30-100)
[2021-01-11 13:28] LABS: URINE CREATININE RANDOM < 13.00 mg/dL
[2021-01-11 13:44] LABS: BACTERIA 2+
== END | disposition home or self-care (01) ==
LOC: LAB 12:10
PROVIDERS: ATTEND Internal Medicine Nephrology
DX: N18.2 Chronic kidney disease, stage 2 (mild) (principal); N02.8 Recurrent and persistent hematuria with other morphologic changes

== ENCOUNTER 2021-06-25 14:20 | Emergency (ER) | payer BC ==
[~2021-06-25] VITALS: Ht 160 cm; Wt 86.2 kg
[2021-06-25 15:16] LABS: BASO # 0.1 10*3/uL (0.0-0.1); BASO % 0.6 % (0.0-1.0); EOS # 0.2 10*3/uL (0.0-0.4); EOS % 2.7 % (1.0-4.0); HEMATOCRIT 40.2 % (37.0-47.0); LYMPH # 2.2 10*3/uL (1.3-4.4); LYMPH % 25.5 % (27.0-41.0); MEAN CELL VOLUME 98.3 fl (81.0-99.0); MEAN CORPUSCULAR HGB 32.8 pg (27.0-31.0); MEAN CORPUSCULAR HGB CONC 33.3 g/dl (33.0-37.0); MEAN PLATELET VOLUME 10.1 fl (9.6-12.3); MONO # 0.7 10*3/uL (0.1-1.0); MONO % 8.2 % (3.0-9.0); NEUT # 5.4 10*3/uL (2.3-7.9); NEUT % 62.7 % (47.0-73.0); PLATELET COUNT AUTOMATED 256 10*3/uL (130-400); RED BLOOD COUNT 4.09 10*6/uL (4.10-5.10); RED CELL DISTRI WIDTH 13.2 % (0-14.5); WHITE BLOOD COUNT 8.6 10*3/uL (4.8-10.8)
[2021-06-25 15:35] LABS: ALKALINE PHOSPHATASE 76 U/L (45-117); BUN 7 mg/dl (7-24); CHLORIDE 110 mmol/L (98-107); LIPASE 92 U/L (73-393); POTASSIUM 3.5 mmol/L (3.5-5.1); SGOT/AST 17 IU/L (3-35); SGPT/ALT 17 U/L (12-78); SODIUM 140 mmol/L (136-145); TOTAL PROTEIN 7.3 gm/dL (6.4-8.2)
[2021-06-25 18:29] LABS: BILIRUBIN Negative (Negative); BLOOD Negative (Negative); CLARITY Cloudy (Clear); COLOR Dark Yellow (Yellow); GLUCOSE Negative (Negative); KETONE 1+ (Negative); LEUKO ESTERASE Trace (Negative); NITRITE Negative (Negative); PH 5.5 (4.5-8.0); SPECIFIC GRAVITY >= 1.030 (1.001-1.030)
[2021-06-25 18:41] LABS: BACTERIA 1+; EPITHELIAL CELLS TNTC
[2021-06-25 18:42] LABS: HYALINE CAST 0-2; MUCOUS 4+; WBC 0-2 wbc/hpf (0-5)
== END 2021-06-25 19:17 | disposition home or self-care (01) ==
LOC: ED 14:20
PROVIDERS: Physician Assistant
DX: R11.2 Nausea with vomiting, unspecified (principal); Z88.1 Allergy status to other antibiotic agents; Z88.0 Allergy status to penicillin; Z79.899 Other long term (current) drug therapy

== ENCOUNTER → 2021-06-28 | Outpatient (CLI) | payer BC ==
[2021-06-28 08:38] LABS: BUN 11 mg/dl (7-24); CREATININE 0.86 mg/dL (0.55-1.02); POTASSIUM 4.1 mmol/L (3.5-5.1); SODIUM 142 mmol/L (136-145)
== END | disposition home or self-care (01) ==
LOC: LAB 08:12
PROVIDERS: ATTEND Nurse Practitioner Family
DX: I10 Essential (primary) hypertension (principal); R61 Generalized hyperhidrosis; R23.2 Flushing

== ENCOUNTER → 2021-06-29 | Outpatient (CLI) | payer BC | END | disposition home or self-care (01) | LOC: LAB 08:30 | PROVIDERS: ATTEND Nurse Practitioner Family | DX: I10 Essential (primary) hypertension (principal); R23.2 Flushing; R61 Generalized hyperhidrosis ==

== ENCOUNTER → 2021-08-25 | Outpatient (CLI) | payer BC ==
[2021-08-25 14:32] LABS: BASO # 0.1 10*3/uL (0.0-0.1); BASO % 0.7 % (0.0-1.0); EOS # 0.8 10*3/uL (0.0-0.4); EOS % 6.9 % (1.0-4.0); HEMATOCRIT 43.3 % (37.0-47.0); LYMPH # 2.6 10*3/uL (1.3-4.4); LYMPH % 23.3 % (27.0-41.0); MEAN CELL VOLUME 96.2 fl (81.0-99.0); MEAN CORPUSCULAR HGB CONC 33.3 g/dl (33.0-37.0); MONO # 0.7 10*3/uL (0.1-1.0); MONO % 6.6 % (3.0-9.0); NEUT % 62.1 % (47.0-73.0); PLATELET COUNT AUTOMATED 362 10*3/uL (130-400); RED CELL DISTRI WIDTH 11.9 % (0-14.5); WHITE BLOOD COUNT 11.2 10*3/uL (4.8-10.8)
[2021-08-25 14:47] LABS: ALKALINE PHOSPHATASE 96 U/L (45-117); BUN 11 mg/dl (7-24); CHLORIDE 108 mmol/L (98-107); CREATININE 0.91 mg/dL (0.55-1.02); POTASSIUM 3.5 mmol/L (3.5-5.1); SGOT/AST 16 IU/L (3-35); SGPT/ALT 22 U/L (12-78); SODIUM 140 mmol/L (136-145); TOTAL PROTEIN 7.6 gm/dL (6.4-8.2)
[2021-08-26 08:09] LABS: RHEUMATOID FACTOR 10.7 IU/mL (<14.0)
[2021-08-26 14:09] LABS: ANTI-DSDNA ANTIBODIES <1 IU/mL (0-9); ANTI-RNP ANTIBODIES <0.2 AI (0.0-0.9); SJOGREN ANTI-SS-A <0.2 AI (0.0-0.9); SJOREN AB, ANTI-SS-B <0.2 AI (0.0-0.9)
[2021-08-27 03:07] LABS: CCP ANTIBODIES IGG/IGA <1 units (0-19)
[2021-09-03 16:08] LABS: HLA-B27 ANTIGEN Positive (.)
== END | disposition home or self-care (01) ==
LOC: LAB 08-20 00:34
PROVIDERS: ATTEND Specialist
DX: Z51.81 Encounter for therapeutic drug level monitoring (principal); Z79.899 Other long term (current) drug therapy; M25.50 Pain in unspecified joint

== ENCOUNTER → 2021-11-10 | Outpatient (CLI) | payer BC | END | disposition home or self-care (01) | LOC: LAB 15:03 | PROVIDERS: ATTEND Nurse Practitioner | DX: Z79.899 Other long term (current) drug therapy (principal) ==

== ENCOUNTER 2022-06-26 16:26 | Emergency (ER) | payer BC ==
[2022-06-26] MEDS ORDERED: CEPHALEXIN500 M1 PO (17:29)
== END 2022-06-26 18:02 | disposition home or self-care (01) ==
LOC: ED 16:26
DX: T81.31XA Disruption of external operation (surgical) wound, not elsewhere classified, initial encounter (principal); I10 Essential (primary) hypertension; Z88.1 Allergy status to other antibiotic agents; Z88.8 Allergy status to other drugs, medicaments and biological substances; Z88.0 Allergy status to penicillin; Z98.890 Other specified postprocedural states; F14.90 Cocaine use, unspecified, uncomplicated; F19.10 Other psychoactive substance abuse, uncomplicated; Y83.8 Other surgical procedures as the cause of abnormal reaction of the patient, or of later complication, without mention of misadventure at the time of the procedure; Y92.89 Other specified places as the place of occurrence of the external cause

== ENCOUNTER → 2022-06-29 | Outpatient (CLI) | payer BC ==
[~2022-06-29] MED LIST changes: +CEPHALEXIN500 M1 PO
== END | disposition home or self-care (01) ==
LOC: WOUNDCARE 07:05
PROVIDERS: ATTEND Nurse Practitioner Family
DX: T81.89XA Other complications of procedures, not elsewhere classified, initial encounter (principal); S81.802A Unspecified open wound, left lower leg, initial encounter; N05.2 Unspecified nephritic syndrome with diffuse membranous glomerulonephritis; C43.9 Malignant melanoma of skin, unspecified; I10 Essential (primary) hypertension; F17.200 Nicotine dependence, unspecified, uncomplicated; F41.9 Anxiety disorder, unspecified; X58.XXXA Exposure to other specified factors, initial encounter; Y93.89 Activity, other specified; Y92.89 Other specified places as the place of occurrence of the external cause; Y99.8 Other external cause status; Y92.238 Other place in hospital as the place of occurrence of the external cause; Y83.8 Other surgical procedures as the cause of abnormal reaction of the patient, or of later complication, without mention of misadventure at the time of the procedure

== ENCOUNTER → 2022-07-06 | Outpatient (CLI) | payer BC | END | disposition home or self-care (01) | LOC: WOUNDCARE 01:52 | PROVIDERS: ATTEND Nurse Practitioner Family | DX: T81.89XD Other complications of procedures, not elsewhere classified, subsequent encounter (principal); S81.802D Unspecified open wound, left lower leg, subsequent encounter; C43.9 Malignant melanoma of skin, unspecified; N05.2 Unspecified nephritic syndrome with diffuse membranous glomerulonephritis; I10 Essential (primary) hypertension; F17.200 Nicotine dependence, unspecified, uncomplicated; F41.9 Anxiety disorder, unspecified; Y83.8 Other surgical procedures as the cause of abnormal reaction of the patient, or of later complication, without mention of misadventure at the time of the procedure ==

== ENCOUNTER → 2022-07-12 | Outpatient (CLI) | payer BC | END | disposition home or self-care (01) | LOC: WOUNDCARE 02:09 | PROVIDERS: ATTEND Nurse Practitioner Family | DX: T81.89XD Other complications of procedures, not elsewhere classified, subsequent encounter (principal); S81.802D Unspecified open wound, left lower leg, subsequent encounter; C43.9 Malignant melanoma of skin, unspecified; N05.2 Unspecified nephritic syndrome with diffuse membranous glomerulonephritis; I10 Essential (primary) hypertension; F17.200 Nicotine dependence, unspecified, uncomplicated; F41.9 Anxiety disorder, unspecified; X58.XXXD Exposure to other specified factors, subsequent encounter; Y83.8 Other surgical procedures as the cause of abnormal reaction of the patient, or of later complication, without mention of misadventure at the time of the procedure ==

== ENCOUNTER → 2022-07-27 | Outpatient (CLI) | payer BC | END | disposition home or self-care (01) | LOC: WOUNDCARE 07-19 01:41 | PROVIDERS: ATTEND Nurse Practitioner Family | DX: T81.89XD Other complications of procedures, not elsewhere classified, subsequent encounter (principal); S81.802D Unspecified open wound, left lower leg, subsequent encounter; C43.9 Malignant melanoma of skin, unspecified; I10 Essential (primary) hypertension; N05.9 Unspecified nephritic syndrome with unspecified morphologic changes; F17.200 Nicotine dependence, unspecified, uncomplicated; F41.9 Anxiety disorder, unspecified; X58.XXXD Exposure to other specified factors, subsequent encounter; Y83.8 Other surgical procedures as the cause of abnormal reaction of the patient, or of later complication, without mention of misadventure at the time of the procedure ==

== ENCOUNTER → 2022-10-11 | Outpatient (CLI) | payer BC | END | disposition home or self-care (01) | LOC: LAB 12:15 | PROVIDERS: ATTEND Nurse Practitioner | DX: Z51.81 Encounter for therapeutic drug level monitoring (principal); Z79.899 Other long term (current) drug therapy ==

== ENCOUNTER → 2023-02-10 | Outpatient (CLI) | payer BC | END | disposition home or self-care (01) | LOC: LAB 13:52 | PROVIDERS: ATTEND Nurse Practitioner | DX: Z51.81 Encounter for therapeutic drug level monitoring (principal); Z79.899 Other long term (current) drug therapy ==

== ENCOUNTER → 2023-03-02 | Outpatient (CLI) | payer BC | END | disposition home or self-care (01) | LOC: CT 13:00 | PROVIDERS: ATTEND Surgery | DX: K63.9 Disease of intestine, unspecified (principal); M48.04 Spinal stenosis, thoracic region ==

== ENCOUNTER → 2023-07-17 | Outpatient (CLI) | payer BC ==
[2023-07-17 11:44] LABS: BASO # 0.1 10*3/uL (0.0-0.1); BASO % 0.6 % (0.0-1.0); EOS # 0.2 10*3/uL (0.0-0.4); HEMATOCRIT 43.2 % (37.0-47.0); LYMPH # 2.4 10*3/uL (1.3-4.4); LYMPH % 25.4 % (27.0-41.0); MEAN CELL VOLUME 100.5 fl (81.0-99.0); MEAN CORPUSCULAR HGB 32.3 pg (27.0-31.0); MEAN CORPUSCULAR HGB CONC 32.2 g/dl (33.0-37.0); MEAN PLATELET VOLUME 10.4 fl (9.6-12.3); MONO # 0.7 10*3/uL (0.1-1.0); MONO % 7.4 % (3.0-9.0); NEUT # 6.1 10*3/uL (2.3-7.9); NEUT % 64.2 % (47.0-73.0); PLATELET COUNT AUTOMATED 251 10*3/uL (130-400); RED CELL DISTRI WIDTH 12.2 % (0-14.5); WHITE BLOOD COUNT 9.5 10*3/uL (4.8-10.8)
[2023-07-17 12:18] LABS: ALKALINE PHOSPHATASE 74 U/L (46-116); BUN 12 mg/dl (9-23); CHLORIDE 107 mmol/L (98-107); CHOLESTEROL 215 mg/dL (<200); LDL CHOLESTEROL 113 mg/dL (9-159); POTASSIUM 4.1 mmol/L (3.4-5.1); SGPT/ALT 31 U/L (5-49); TOTAL PROTEIN 7.5 gm/dL (6.0-8.0); TRIGLYCERIDES 129 mg/dl (<150); VALPROIC ACID (DEPAKENE) 55.4 ug/ml (50-100)
== END | disposition home or self-care (01) ==
LOC: LAB 11:21
PROVIDERS: ATTEND Nurse Practitioner
DX: Z51.81 Encounter for therapeutic drug level monitoring (principal); F31.63 Bipolar disorder, current episode mixed, severe, without psychotic features

== ENCOUNTER → 2024-06-17 | Outpatient (CLI) | payer OTHER ==
[2024-06-17 11:36] LABS: BASO # 0.1 10*3/uL (0.0-0.1); BASO % 0.5 % (0.0-1.0); EOS # 0.2 10*3/uL (0.0-0.4); EOS % 1.9 % (1.0-4.0); HEMATOCRIT 41.8 % (37.0-47.0); MEAN CELL VOLUME 99.3 fl (81.0-99.0); MEAN CORPUSCULAR HGB 32.1 pg (27.0-31.0); MEAN CORPUSCULAR HGB CONC 32.3 g/dl (33.0-37.0); MEAN PLATELET VOLUME 10.2 fl (9.6-12.3); MONO # 0.7 10*3/uL (0.1-1.0); MONO % 5.8 % (3.0-9.0); NEUT # 8.1 10*3/uL (2.3-7.9); NEUT % 72.4 % (47.0-73.0); PLATELET COUNT AUTOMATED 276 10*3/uL (130-400); RED BLOOD COUNT 4.21 10*6/uL (4.10-5.10); RED CELL DISTRI WIDTH 11.3 % (0-14.5); WHITE BLOOD COUNT 11.2 10*3/uL (4.8-10.8)
[2024-06-17 12:01] LABS: ALKALINE PHOSPHATASE 72 U/L (46-116); BUN 11 mg/dl (9-23); CHLORIDE 107 mmol/L (98-107); CHOLESTEROL 225 mg/dL (<200); LDL CHOLESTEROL 107 mg/dL (9-159); POTASSIUM 3.8 mmol/L (3.4-5.1); SGPT/ALT < 7 U/L (5-49); TOTAL PROTEIN 7.3 gm/dL (6.0-8.0); TRIGLYCERIDES 220 mg/dl (<150); VALPROIC ACID (DEPAKENE) 40.7 ug/ml (50-100)
== END | disposition home or self-care (01) ==
LOC: LAB 06-14 00:47
PROVIDERS: ATTEND Nurse Practitioner Family
DX: R00.0 Tachycardia, unspecified (principal); F31.63 Bipolar disorder, current episode mixed, severe, without psychotic features

== ENCOUNTER → 2025-01-20 | Outpatient (CLI) | payer BC ==
[2025-01-20 10:43] LABS: BASO # 0.0 10*3/uL (0.0-0.1); BASO % 0.5 % (0.0-1.0); EOS # 0.1 10*3/uL (0.0-0.4); EOS % 2.2 % (1.0-4.0); MEAN CELL VOLUME 95.7 fl (81.0-99.0); MEAN CORPUSCULAR HGB 31.6 pg (27.0-31.0); MEAN PLATELET VOLUME 11.0 fl (9.6-12.3); MONO # 0.5 10*3/uL (0.1-1.0); MONO % 8.8 % (3.0-9.0); NEUT # 3.4 10*3/uL (2.3-7.9); NEUT % 56.0 % (47.0-73.0); NUCLEATED RED BLOOD CELL 0.0 % (0.0-0.0); NUCLEATED RED BLOOD CELL 0.0 10*3/uL (0.0-0.0); PLATELET COUNT AUTOMATED 211 10*3/uL (130-400); RED CELL DISTRI WIDTH 12.0 % (0-14.5)
[2025-01-20 10:53] LABS: BILIRUBIN Negative (Negative); BLOOD Negative (Negative); CLARITY Clear (Clear); COLOR Yellow (Yellow); KETONE Negative (Negative); LEUKO ESTERASE Negative (Negative); NITRITE Negative (Negative); PH 6.5 (4.5-8.0); SPECIFIC GRAVITY 1.015 (1.001-1.030); UROBILINOGEN 0.2 E.U./dl (0.0-1.0)
[2025-01-20 11:09] LABS: BUN 15 mg/dl (9-23)
[2025-01-20 11:16] LABS: BACTERIA TRACE; MUCOUS TRACE; RBC 0-2 rbc/hpf (0-2); WBC 0-2 wbc/hpf (0-5)
== END | disposition home or self-care (01) ==
LOC: LAB 10:15
PROVIDERS: ATTEND Internal Medicine Nephrology
DX: I12.9 Hypertensive chronic kidney disease with stage 1 through stage 4 chronic kidney disease, or unspecified chronic kidney disease (principal); N18.9 Chronic kidney disease, unspecified